=== PATIENT | female | born 1955 | race Two or more races ===

== ENCOUNTER 2024-09-29 07:46 | Inpatient (IN) | payer MEDICARE, OTHER ==
[~2024-09-29] VITALS: Ht 152.4 cm; Wt 80.0 kg
[2024-09-29 07:50] VITALS: PULSE 80; RESP 20; O2SAT 96
--- NOTE | 2024-09-29 08:46 | ED.PDOC ---
GI ASSESSMENT HPI Comments 69 y/o F, with PMHx of thyroid disease and rheumatoid arthritis presents to the ED for CC of abdominal pain. Patient states, she has been experiencing epigastric abdominal pain that radiates to her mid-upper back x1week. Patient reports, additional symptoms of hair loss and brittle nails [id number]; endorses being unable to see PCP for symptoms. Patient denies nausea, vomiting, or diarrhea. No other associated symptoms, modifiers, recent injuries or sick contacts present at this time. Chief Complaint: Abdominal Pain Time Seen by MD: 08:40 Primary Care Provider: RACHEL Reviewed Notes: Nurses Notes, Medications, Allergies Allergies: Coded Allergies: Iodine (Verified Allergy, Unknown, 09/29/24) Home Meds Reported Medications Levothyroxine Sodium (Synthroid) 75 Mcg Tab, 1 TAB PO QAM 09/29/24 Information Source: Patient Mode of Arrival: Ambulatory Timing: Days Duration: Since onset Prehospital treatment: None Quality: None Vomitus: None Stool: Normal Severity: Moderate Recent: None Recent Hx of: None Pain Location: Epigastric Modifying Factors: Nothing Associated sign and symptoms: Abdominal Pain Past Medical History PAST MEDICAL HISTORY: Arthritis, Thyroid Surgical History: Denies all surgeries BUSINESS TRANSFORMATION MANAGER History: Denies all BUSINESS TRANSFORMATION MANAGER Hx Family History Family History: Unknown Social History Smoker: Non-Smoker Alcohol: Denies ETOH Use Drugs: Denies Drug Use Lives In: Home Constitutional: denies: chills, diaphoresis, fatigue, fever, malaise, sweats, w eakness, others EENTM: denies: blurred vision, double vision, ear bleeding, ear discharge, ear drainage, ear pain, ear ringing, eye pain, eye redness, hearing loss, mouth pain, mouth swelling, nasal discharge, nose bleeding, nose congestion, nose pain, photophobia, tearing, throat pain, throat swelling, voice changes, others Respiratory: denies: cough, hemoptysis, orthopnea, SOB at rest, shortness of breath, SOB with excertion, stridor, wheezing, others Cardiovascular: denies: chest pain, dizzy spells, diaphoresis, Dyspnea on exertion, edema, irregular heart beat, left arm pain, lightheadedness, palpitations, PND, syncope, others Gastrointestinal: reports: abdominal pain; denies: abdomen distended, blood streaked bowels, constipated, diarrhea, dysphagia, difficulty swallowing, hematemesis, melena, nausea, poor appetite, poor fluid intake, rectal bleeding, rectal pain, vomiting, others Genitourinary: denies: abnormal vagina bleeding, burning, dyspareunia, dysuria, flank pain, frequency, hematuria, incontinence, pain, , vagina discharge, urgency, others Neurological: denies: dizziness, fainting, headache, left sided numbness, left sided weakness, numbness, paresthesia, pre-existing deficit, right sided numbness, right sided weakness, seizure, speech problems, tingling, tremors, weakness, others Musculoskeletal: reports: back pain; denies: gout, joint pain, joint swelling, muscle pain, muscle stiffness, neck pain, others Integumetry: denies: bruises, change in color, change in hair/nails, dryness, laceration, lesions, lumps, rash, wounds, others Allergic/Immunocompromised: denies: Difficulty Healing, Frequent Infections, Hives, Itching, others Hematologic/Lymphatic: denies: anemia, blood clots, easy bleeding, easy bruising, swollen glands, others Endocrine: denies: excessive hunger, excessive sweating, excessive thirst, excessive urination, flushing, intolerance to cold, intolerance to heat, unexplained weight gain, unexplained weight loss, others Psychiatric: denies: anxiety, bipolar disorder, depression, hopeless, panic disorder, schizophrenia, sleepless, suicidal, others All Other Systems: Reviewed and Negative Physical Exam General Appearance: No Apparent Distress, Obese HEENT: Normal ENT Inspection, Pharynx Normal Neck: Full Range of Motion, Non-Tender, Normal, Normal Inspection Respiratory: Chest Non-Tender, Lungs Clear, No Accessory Muscle Use, No Respiratory Distress, Normal Breath Sounds Cardiovascular: No Edema, No Murmur, No Gallop, Normal Peripheral Pulses, Regular Rate/Rhythm Breast Exam: Deferred Gastrointestinal: Diffuse, No Organomegaly, No Pulsatile Mass, Normal Bowel Sounds, Tenderness Genitalia: Deferred Pelvic: Deferred Rectal: Deferred Extremities: No calf tenderness, Normal capillary refill, Normal inspection, Normal range of motion, Non-tender, No pedal edema Musculoskeletal : Apperance: Normal Neurologic: Alert, music specialist II-XII nml as Tested, No Motor Deficits, Normal Affect, Normal Mood, No Sensory Deficits Cerebellar Function: Normal Reflexes: Normal Skin: Dry, Normal Color, Warm Lymphatic: No Adenopathy Was a procedure done? Was a procedure done?: No GI differential Dx Differential Diagnosis: Cholangitis, Cholecystitis, Diverticular disease, Pancreatitis, Urolithiasis X-Ray, Labs, Meds, VS Vital Signs Date Time Temp Pulse Resp B/P (MAP) Pulse Ox O2 Delivery O2 Flow Rate FiO2 09/29/24 13:46 68 18 169/82 (111) 96 09/29/24 11:46 70 18 184/79 (114) 96 09/29/24 07:50 98.7 80 20 165/77 (106) 96 98.7 09/29/24 07:50 98.7 80 20 165/77 (106) 96 98.7 09/29/24 07:50 80 20 96 Room Air* 0 21 Lab Test 09/29/24 12:00 09/29/24 10:24 09/29/24 08:44 09/29/24 08:36 Range/Units Troponin I High Sensitivity 16 16 16 </=34 ng/L White Blood Count 2.8 L 4.4-10.8 10^3/uL Red Blood Count 4.25 4.0-5.20 10^6/uL Hemoglobin 15.3 12.2-16.2 g/dL Hematocrit 43.8 36.0-46.0 % Mean Corpuscular Volume 103.1 H 80.0-100.0 fL Mean Corpuscular Hemoglobin 36.1 H 28.0-32.0 pg Mean Corpuscular Hemoglobin Concent 35.0 32.0-36.0 g/dL Red Cell Distribution Width 16.4 H 11.8-14.3 % Platelet Count 112 L 140-450 10^3/uL Mean Platelet Volume 10.0 6.9-10.8 fL Neutrophils (%) (Auto) 42.8 37.0-80.0 % Lymphocytes (%) (Auto) 41.0 10.0-50.0 % Monocytes (%) (Auto) 12.4 H 0.0-12.0 % Eosinophils (%) (Auto) 2.6 0.0-7.0 % Basophils (%) (Auto) 1.2 0.0-2.0 % Neutrophils # (Auto) 1.2 L 1.6-8.6 10 ^3/uL Lymphocytes # (Auto) 1.2 0.4-5.4 10 ^3/uL Monocytes # (Auto) 0.4 0-1.3 10 ^3/uL Eosinophils # (Auto) 0.1 0-0.8 10 ^3/uL Basophils # (Auto) 0 0-0.2 10 ^3/uL Nucleated Red Blood Cells 0.2 % Sodium Level 144 136-145 mmol/L Potassium Level 4.0 3.5-5.1 mmol/L Chloride Level 110 H 98-107 mmol/L Carbon Dioxide Level 25 20-31 mmol/L Anion Gap 9 5-15 Blood Urea Nitrogen 12 9-23 mg/dL Creatinine 0.58 0.550-1.02 mg/dL Glomerular Filtration Rate Calc 99 >90 mL/min BUN/Creatinine Ratio 20.7 H 10.0-20.0 Serum Glucose 93 74-106 mg/dL Calcium Level 9.1 8.7-10.4 mg/dL Urine Color Yellow Yellow Urine Clarity Turbid H Clear Urine pH 5.5 5.0-9.0 Urine Specific [place] 1.019 1.001-1.035 Urine Protein Negative Negative Urine Ketones Negative Negative Urine Blood Trace H Negative /uL Urine Nitrite Negative Negative Urine Bilirubin Negative Negative Urine Urobilinogen 3 H Negative mg/dL Urine Leukocyte Esterase 2+ Negative /uL Urine RBC 3 0 - 4 /hpf Urine Microscopic WBC 5 0-5 /HPF Urine Squamous Epithelial Cells Few <5 /hpf Urine Bacteria None seen None Seen /hpf Urine Mucus Few None Seen Urine Glucose Normal Normal mg/dL [place] [address] Ph: [phone] DIAGNOSTIC IMAGING Diagnostic Imaging Report : [id number] Signed PATIENT: SUZANNE MADDEN ACCT: [id number] UNIT: [id number] : 1955 LOC: ER ROOM / BED: / AGE / SEX: 69 / F ADM STATUS: REG ER SERVICE [id number] ORDERING PHYSICIAN: EMA ALMAZAN MD PROCEDURE(s): CXRP - CHEST PORTABLE REASON: right chest wall pain ORDER NUMBER(s): [id number], ACCESSION NUMBER(s): [id number] CHEST RADIOGRAPH Indication: right chest wall pain Technique: Single frontal view of the chest was obtained COMPARISON: None FINDINGS: Lines and Tubes: None Lungs: Clear Pleura: No effusion. No pneumothorax. Cardiomediastinal contours: Unremarkable Bones: Unremarkable IMPRESSION: No acute disease. ATED BY: STANISLAV TOLENTINO MD DICTATED DATE/TIME: 09/29/24858 SIGNED BY: STANISLAV TOLENTINO MD SIGNED DATE/TIME: 09/29/24858 CC: Time of 1ST Reevaluation: 09:10 Reevaluation 1ST: Unchanged Patient Education/Counseling: Diagnosis, Treatment Family Education/Counseling: No Family Present SEPSIS Sepsis Screen Date sepsis recognized/suspect: Sep 29, 2024 Time Sepsis recognized/suspect: 749 Recent Procedure: No On Antibiotic Therapy: No Respiratory Rate >20: No Heart Rate >90: No Temp<36 C (96.8 F) or >38.3 C: No SBP <90 or MAP <65 mmHG: No New Acute Mental Status Change: No Is the patient on CPAP, BIPAP,: No Physician Orders Chest Portable (09/29/24 08:36) Ct Ab Pel Wo Con-No Oral Or Iv (09/29/24 11:09) Vital Signs Date Time Temp Pulse Resp B/P (MAP) Pulse Ox O2 Delivery O2 Flow Rate FiO2 09/29/24 13:46 68 18 169/82 (111) 96 09/29/24 11:46 70 18 184/79 (114) 96 09/29/24 07:50 98.7 80 20 165/77 (106) 96 98.7 09/29/24 07:50 98.7 80 20 165/77 (106) 96 98.7 09/29/24 07:50 80 20 96 Room Air* 0 21 Laboratory Tests Test 09/29/24 08:44 White Blood Count 2.8 10^3/uL (4.4-10.8) L Departure 1 Departure Time of Disposition: 18:32 (Patient presented with abdominal pain that was concerning for possible appendicits, gastritis, cholecystitis, colitis, gastroenteritis, sbo, or orther possible surgical emergency. Data: 1. I ordered and reviewed the result of at least 3 labs including a CBC, BMP, and Urinalysis. 2. I independently interpreted the following tests: CT Abdoment and Pelvis is concerning for acute diverticulitis .Risk:This patient has a high risk of morbidity due to further diagnostic testing or treatment and may suffer from an acute abdominal process disorder. Workup reveals diverticulitis and patient should be admitted for further workup. and possible expert consultation. ) Impression: Primary Impression: Diverticulitis of intestine Qualified Codes: K57.32 - Diverticulitis of large intestine without perforation or abscess without bleeding Additional Impression: Intractable abdominal pain Disposition: ADMITTED INPATIENT Admit to: Med Surg Condition: Serious Critical Care Note Critical Care Time?: Yes Critical care comment: Acute diverticulitis Authorized and Performed by: Ema Almazan MD Total critical care time: Approximately 38 minutes Due to a high probability of clinically significant, life threatening deterioration, the patient required my highest level of preparedness to intervene emergently and I personally spent this critical care time directly and personally managing the patient. This critical care time included obtaining a history; examining the patient; pulse oximetry; ordering and review of studies; arranging urgent treatment with development of a management plan; evaluation of patient's response to treatment; frequent reassessment; and, discussions with other providers. This critical care time was performed to assess and manage the high probability of imminent, life-threatening deterioration that could result in multi-organ failure. It was exclusive of separately billable procedures and treating other patients and teaching time. Please see my other sections and the rest of the note for further information on patient assessment and treatment. Stability Stability form required: No Heart Score Heart Score: Heart Score Response (Comments) Value History N/A 0 EKG N/A 0 Age N/A 0 Risk Factors N/A 0 Troponin N/A 0 Total 0 I personally scribed for EMA ALMAZAN MD ([email or web address]) on 09/29/24 at 08:46. Electronically submitted by Lizzette Erickson ([place]). I personally scribed for EMA ALMAZAN MD ([email or web address]) on 09/29/24 at 08:48. Electronically submitted by Lizzette Erickson ([place]). I personally scribed for EMA ALMAZAN MD ([email or web address]) on 09/29/24 at 08:50. Electronically submitted by Lizzette Erickson ([place]). I personally scribed for EMA ALMAZAN MD ([email or web address]) on 09/29/24 at 09:04. Electronically submitted by Lizzette Erickson ([email or web address]). EMA ALMAZAN MD Sep 29, 2024 08:46
[2024-09-29 08:59] LABS: Urine Protein, UAD Negative (Negative)
--- NOTE | 2024-09-29 09:01 | DVH ---
CHEST RADIOGRAPH Indication: right chest wall pain Technique: Single frontal view of the chest was obtained COMPARISON: None FINDINGS: Lines and Tubes: None Lungs: Clear Pleura: No effusion. No pneumothorax. Cardiomediastinal contours: Unremarkable Bones: Unremarkable IMPRESSION: No acute disease.
[2024-09-29 09:33] LABS: Hematocrit 43.8 % (36.0-46.0); Hemoglobin 15.3 g/dL (12.2-16.2); Mean Corpuscular Hemoglobin 36.1 pg (28.0-32.0); Mean Corpuscular Volume 103.1 fL (80.0-100.0); Nucleated Red Blood Cells % 0.2 %
[2024-09-29 09:44] LABS: Potassium 4.0 mmol/L (3.5-5.1); Sodium 144 mmol/L (136-145)
[2024-09-29 09:45] LABS: Anion Gap 9 (5-15); Calcium 9.1 mg/dL (8.7-10.4); Carbon Dioxide 25 mmol/L (20-31)
[2024-09-29 09:50] LABS: BUN/Creatinine Ratio 20.7 (10.0-20.0); Blood Urea Nitrogen 12 mg/dL (9-23); Glucose 93 mg/dL (74-106)
[2024-09-29 09:53] LABS: Chloride 110 mmol/L (98-107)
[2024-09-29] MEDS ORDERED: cefTRIAXone SOD 1,000 MG VL IM ONE (11:15)
--- NOTE | 2024-09-29 12:11 | DVH ---
Exam: CT CT AB PEL WO CON-NO ORAL OR IV History: abdominal pain Comparison Study: None TECHNIQUE: Multidetector CT of the abdomen was performed from lung bases to pubic symphysis. Imaging was performed without IV contrast. Axial, coronal and sagittal multiplanar reformats were obtained fr om the axial data set by the technologist. Radiation Dose Information: CT Dose: CTDI volume is 22.0 mGy. Dose-length product is mGy*cm FINDINGS: Evaluation of solid organs is limited due to lack of intravenous contrast use. Findings: Imaged lower lungs are unremarkable. Status post cholecystectomy. The liver, spleen, pancreas, adrenal glands, kidneys, and urinary bladde r within normal limits. Status post hysterectomy. There is extensive sigmoid and descending colonic diverticulosis. There is minimal inflammatory nicolas e surrounding a sigmoid diverticulum. No free air or abscess. The appendix is not visualized. Minimal atherosclerotic calcification of the abdominal aorta. No enlarged intra-abdominal lymph nodes . The abdominal wall and soft tissues are unremarkable. Moderate degenerative changes within the lumbar spine with L4 schmorls node. IMPRESSION: 1. Mild acute sigmoid diverticulitis. 2. Status post cholecystectomy and hysterectomy Radiation optimization: All CT scans at this facility use at least one of these dose optimization partha hniques: automated exposure control mA and/or kV adjustment per patient size (includes targeted exam s where dose is matched to clinical indication) or iterative reconstruction.
[2024-09-29] MEDS ORDERED: ACETAMINOPHEN 325 MG TAB PO PRN (14:15)
[2024-09-29] MEDS ORDERED: DOCUSATE SOD 100 MG CAP PO PRN (14:15)
[2024-09-29] MEDS ORDERED: ONDANSETRON HCL 4 MG/2 ML VIAL IV PRN (14:15)
[2024-09-29] MEDS ORDERED: LEV75T PO (14:20)
--- NOTE | 2024-09-29 14:27 | DVHHP2 ---
History of Present Illness Reason for Visit: Abdominal pain History of Present Illness Noelle Sifuentes is a 69-year-old female with past medical history of hypothyroidism, sleep apnea, rheumatoid arthritis, and fibromyalgia, who came to the hospital for abdominal pain. Patient states she has been experiencing intermittent abdominal pain that radiates around to her back for about 1 week. Patient also states that for the last few months she has been losing her hair, and her nails have been brittle and braking. Patient also have bilateral pitting edema to the lower extremities. Pulmonary: Other (Sleep apnea, uses CPAP) Rheumatologic: Fibromyalgia, Rheumatoid arthritis Endocrine: Hypothyroidism Past Surgical History: Appendectomy, Cholecystectomy, Hysterectomy, Other (Bilateral shouders) Smoke: No ALCOHOL: none Drugs: None Lives: with Family Domestic Violence: Neg Review of Systems Constitutional: No: Fever, Chills, Sweats, Weakness, Malaise, Other Eyes: No: Pain, Vision change, Conjunctivae inflammation, Eyelid inflammation, Other, Redness ENT: No: Ear pain, Ear discharge, Nose pain, Nose discharge, Nose congestion, Mouth pain, Mouth swelling, Throat pain, Throat swelling, Other Respiratory: No: Cough, Dry, Shortness of breath, SOB with excertion, Wheezing, Hemoptysis, Pleuritic Pain, Sputum, Wheezing, Other Cardiovascular: Edema (bilateral lower extremities edema); No: Chest Pain, Palpitations, Orthopnea, Paroxysmal Noc. Dyspnea, Lt Headedness, Other Gastrointestinal: Nausea, Abdominal Pain; No: Vomiting, Diarrhea, Constipation, Melena, Hematochezia, Other Genitourinary: No Dysuria, No Frequency, No Incontinence, No Hematuria, No Retention, No Other Musculoskeletal: No: other, neck pain, shoulder pain, arm pain, back pain, hand pain, leg pain, foot pain Skin: No: Rash, Lesions, Jaundice, Bruising, Other Neurological: No: Weakness, Numbness, Incoordination, Change in speech, Confusion, Seizures, Other Allergies: Coded Allergies: Iodine (Verified Allergy, Unknown, 09/29/24) Medications Current Medications Medications Dose Ordered Sig/Dylan Route Start Time Stop Time Status Last Admin Dose Admin Acetaminophen/ Hydrocodone Bitart 1 tab Q4HP PRN PO 09/29/24 14:15 UNV Ondansetron HCl 4 mg Q4HP PRN IV 09/29/24 14:15 UNV Docusate Sodium 100 mg BIDPRN PRN PO 09/29/24 14:15 UNV Acetaminophen 650 mg Q6HP PRN PO 09/29/24 14:15 UNV Morphine Sulfate 2 mg Q4HPRN PRN IV 09/29/24 14:15 UNV Exam Vital Signs Vital Signs Date Time Temp Pulse Resp B/P (MAP) Pulse Ox O2 Delivery O2 Flow Rate FiO2 09/29/24 13:46 68 18 169/82 (111) 96 09/29/24 07:50 98.7 98.7 09/29/24 07:50 Room Air* 0 21 General Appearance: Alert, Oriented X3, Cooperative HEENT: Atraumatic, PERRLA Respiratory: Clear to auscultation, Normal air movement Cardiovascular: Regular rate, Normal S1, Normal S2 Abdominal: Normal bowel sounds Extremities: No clubbing, No cyanosis, Normal pulses, No tenderness/swelling, Other (bilateral lower extremity edema. ) Skin: No rashes, No breakdown, No significant lesion Neuro: Normal gait, Normal speech, Strength at 5/5 X4 ext Psych/Mental Status: Mental status NL, Mood NL Labs/Xrays Labs Test 09/29/24 12:00 09/29/24 08:44 09/29/24 08:36 Range/Units Troponin I High Sensitivity 16 </=34 ng/L White Blood Count 2.8 L 4.4-10.8 10^3/uL Red Blood Count 4.25 4.0-5.20 10^6/uL Hemoglobin 15.3 12.2-16.2 g/dL Hematocrit 43.8 36.0-46.0 % Mean Corpuscular Volume 103.1 H 80.0-100.0 fL Mean Corpuscular Hemoglobin 36.1 H 28.0-32.0 pg Mean Corpuscular Hemoglobin Concent 35.0 32.0-36.0 g/dL Red Cell Distribution Width 16.4 H 11.8-14.3 % Platelet Count 112 L 140-450 10^3/uL Mean Platelet Volume 10.0 6.9-10.8 fL Neutrophils (%) (Auto) 42.8 37.0-80.0 % Lymphocytes (%) (Auto) 41.0 10.0-50.0 % Monocytes (%) (Auto) 12.4 H 0.0-12.0 % Eosinophils (%) (Auto) 2.6 0.0-7.0 % Basophils (%) (Auto) 1.2 0.0-2.0 % Neutrophils # (Auto) 1.2 L 1.6-8.6 10 ^3/uL Lymphocytes # (Auto) 1.2 0.4-5.4 10 ^3/uL Monocytes # (Auto) 0.4 0-1.3 10 ^3/uL Eosinophils # (Auto) 0.1 0-0.8 10 ^3/uL Basophils # (Auto) 0 0-0.2 10 ^3/uL Nucleated Red Blood Cells 0.2 % Sodium Level 144 136-145 mmol/L Potassium Level 4.0 3.5-5.1 mmol/L Chloride Level 110 H 98-107 mmol/L Carbon Dioxide Level 25 20-31 mmol/L Anion Gap 9 5-15 Blood Urea Nitrogen 12 9-23 mg/dL Creatinine 0.58 0.550-1.02 mg/dL Glomerular Filtration Rate Calc 99 >90 mL/min BUN/Creatinine Ratio 20.7 H 10.0-20.0 Serum Glucose 93 74-106 mg/dL Calcium Level 9.1 8.7-10.4 mg/dL Urine Color Yellow Yellow Urine Clarity Turbid H Clear Urine pH 5.5 5.0-9.0 Urine Specific [place] 1.019 1.001-1.035 Urine Protein Negative Negative Urine Ketones Negative Negative Urine Blood Trace H Negative /uL Urine Nitrite Negative Negative Urine Bilirubin Negative Negative Urine Urobilinogen 3 H Negative mg/dL Urine Leukocyte Esterase 2+ Negative /uL Urine RBC 3 0 - 4 /hpf Urine Microscopic WBC 5 0-5 /HPF Urine Squamous Epithelial Cells Few <5 /hpf Urine Bacteria None seen None Seen /hpf Urine Mucus Few None Seen Urine Glucose Normal Normal mg/dL CHEST RADIOGRAPH FINDINGS: Lines and Tubes: None Lungs: Clear Pleura: No effusion. No pneumothorax. Cardiomediastinal contours: Unremarkable Bones: Unremarkable IMPRESSION: No acute disease. Exam: CT CT AB PEL WO CON-NO ORAL OR IV FINDINGS: Evaluation of solid organs is limited due to lack of intravenous contrast use. Findings: Imaged lower lungs are unremarkable. Status post cholecystectomy. The liver, spleen, pancreas, adrenal glands, kidneys, and urinary bladder within normal limits. Status post hysterectomy. There is extensive sigmoid and descending colonic diverticulosis. There is minimal inflammatory change surrounding a sigmoid diverticulum. No free air or abscess. The appendix is not visualized. Minimal atherosclerotic calcification of the abdominal aorta. No enlarged intra- abdominal lymph nodes. The abdominal wall and soft tissues are unremarkable. Moderate degenerative changes within the lumbar spine with L4 schmorls node. IMPRESSION: 1. Mild acute sigmoid diverticulitis. 2. Status post cholecystectomy and hysterectomy SEPSIS Sepsis Screen Date sepsis recognized/suspect: Sep 29, 2024 Time Sepsis recognized/suspect: 749 Recent Procedure: No On Antibiotic Therapy: No Respiratory Rate >20: No Heart Rate >90: No Temp<36 C (96.8 F) or >38.3 C: No SBP <90 or MAP <65 mmHG: No New Acute Mental Status Change: No Is the patient on CPAP, BIPAP,: No Physician Orders Chest Portable (09/29/24 08:36) Ct Ab Pel Wo Con-No Oral Or Iv (09/29/24 11:09) Admit (09/29/24 14:13) Code Status (09/29/24 14:13) Hydrocodone-Acet 5/325mg Tab (Boissevain 5/32 (09/29/24 14:15) Ondansetron Hcl (Zofran) (09/29/24 14:15) Docusate Sodium Capsule (Colace Capsule) (09/29/24 14:15) Complete Blood Count (09/30/24 04:00) Comprehensive Metabolic Panel (09/30/24 04:00) Condition: Serious (09/29/24 14:13) Acetaminophen Tablet (Tylenol Tablet) (09/29/24 14:15) Morphine Sulfate Injection (09/29/24 14:15) Metronidazole Ivpb Flagyl (09/29/24 22:00) Ceftriaxone Ivpb Rocephin (09/30/24 09:00) NS (09/29/24 14:30) (Nf) Levothyroxine Sodium (Synthroid) (09/30/24 07:00) Vital Signs Date Time Temp Pulse Resp B/P (MAP) Pulse Ox O2 Delivery O2 Flow Rate FiO2 09/29/24 13:46 68 18 169/82 (111) 96 09/29/24 11:46 70 18 184/79 (114) 96 09/29/24 07:50 98.7 80 20 165/77 (106) 96 98.7 09/29/24 07:50 98.7 80 20 165/77 (106) 96 98.7 09/29/24 07:50 80 20 96 Room Air* 0 21 Laboratory Tests Test 09/29/24 08:44 White Blood Count 2.8 10^3/uL (4.4-10.8) L Assessment/Plan Assessment/Plan Assessment: Diverticulitis, Hypothyroidism, Sleep apnea, Plan: Admit to Med-Surg, GI consult, IV antibiotics, IV hydration, Clear liquid diet, TSH, T3, T4, Home medications reconciled, Plan discussed with: Patient My Orders Orders - ALEX PINON Procedure Category Date Status Time Admit ADMIT 09/29/24 Transmitted 14:13 Code Status CODE 09/29/24 Transmitted 14:13 Hydrocodone-Acet PHA 09/29/24 Logged 5/325mg Tab (Boissevain 14:15 Ondansetron Hcl PHA 09/29/24 Logged (Zofran) 14:15 Docusate Sodium PHA 09/29/24 Logged Capsule (Colace 14:15 Complete Blood Count LAB 09/30/24 Verified 04:00 Comprehensive LAB 09/30/24 Verified Metabolic Panel 04:00 Condition: Serious LUZ 09/29/24 In Process 14:13 Acetaminophen Tablet PHA 09/29/24 Logged (Tylenol Tablet) 14:15 Morphine Sulfate PHA 09/29/24 Logged Injection 14:15 Metronidazole Ivpb PHA 09/29/24 Transmitted Flagyl 22:00 Ceftriaxone Ivpb PHA 09/30/24 Transmitted Rocephin 09:00 NS PHA 09/29/24 Transmitted 14:30 (Nf) Levothyroxine PHA 09/30/24 Transmitted Sodium (Synthroid) 07:00 Date of Service: Sep 29, 2024 Billing Provider: ALEX PINON Common Visit Codes: [id number] INP/OBS CARE (MOD) ALEX PINON Sep 29, 2024 14:27
[2024-09-29] MEDS: SODIUM CHLORIDE 0.9% 1,000 ML IV ONE (14:29)
[2024-09-29 16:28] VITALS: BP 165/77; PULSE 80; RESP 20; TEMP 98.7; O2SAT 96
[2024-09-29 19:00] VITALS: O2SAT 96
[2024-09-29] MEDS: MORPHINE SULFATE INJ 2 MG/ml SYRG IV PRN (20:56)
[2024-09-29 21:00] VITALS: BP 143/55; PULSE 68; RESP 18; TEMP 98.1; O2SAT 97
[2024-09-29] MEDS: HYDROcodone-ACET 5/325MG TAB PO PRN (22:26)
[2024-09-29 22:29] VITALS: BP 142/55; PULSE 68; RESP 16; TEMP 97.9; O2SAT 98
[2024-09-29 23:00] VITALS: PULSE 61; O2SAT 97
[2024-09-30] VITALS (9 sets, daily range): BP systolic 110–145; BP diastolic 56–76; PULSE 58–82; RESP 16–22; TEMP 97.5–98; O2SAT 92–100
[2024-09-30 06:09] LABS: Hematocrit 38.4 % (36.0-46.0); Hemoglobin 13.5 g/dL (12.2-16.2); Mean Corpuscular Hemoglobin 36.2 pg (28.0-32.0); Mean Corpuscular Volume 103.1 fL (80.0-100.0); Nucleated Red Blood Cells % 0.2 %
[2024-09-30 06:15] LABS: Alanine Aminotransferase 36 U/L (7-40); Anion Gap 6 (5-15); BUN/Creatinine Ratio 21.7 (10.0-20.0); Blood Urea Nitrogen 10 mg/dL (9-23); Carbon Dioxide 26 mmol/L (20-31); Glucose 78 mg/dL (74-106); Potassium 3.8 mmol/L (3.5-5.1); Sodium 142 mmol/L (136-145)
[2024-09-30 06:19] LABS: Albumin 2.8 g/dL (3.2-4.8); Alkaline Phosphatase 148 U/L (46-116); Bilirubin, Total 5.1 mg/dL (0.2-1.0); Calcium 8.2 mg/dL (8.7-10.4); Chloride 110 mmol/L (98-107); Total Protein 4.8 g/dL (5.7-8.2)
[2024-09-30] MEDS: LEVOTHYROXINE SODIUM 25 MCG TAB PO SCH (06:23)
[2024-09-30] MEDS ORDERED: PATIENTS OWN MEDICATION (Levothyroxine Sodium (Synthroid) 1 TAB) PO SCH (07:00)
[2024-09-30] MEDS: cefTRIAXone 1GM/50ML D5W 50 ML IV SCH (10:10)
--- NOTE | 2024-09-30 13:42 | DVHPN2 ---
Subjective 69-year-old female with a history of rheumatoid arthritis, fibromyalgia, hypothyroidism, prior cholecystectomy came with a chief complaint of right upper quadrant abdominal pain and right lower chest pain for about 1 week, the pain is associated with radiation to the back, cough makes it worse No nausea or vomiting or diarrhea She also complains of some mild pain in the left lower quadrant On evaluation here it was found that her bilirubin is 5.1 and alkaline phosphatase was 148 The patient had cholecystectomy many years ago She also has a history of fatty liver and she sees Dr. Barbie Herrera for it as an outpatient Changes from previous H/P or p: Changes Eyes: No Pain, No Vision change, No Conjunctivae inflammation, No Eyelid inflammation, No Other, No Redness ENT: No Ear pain, No Ear discharge, No Nose pain, No Nose discharge, No Nose congestion, No Mouth pain, No Mouth swelling, No Throat pain, No Throat swelling, No Other Cardiovascular: No Chest Pain, No Palpitations, No Orthopnea, No Paroxysmal Noc. Dyspnea; Edema (bilateral lower extremities edema); No Lt Headedness, No Other Respiratory: No Cough, No Dry, No Shortness of breath, No SOB with excertion, No Wheezing, No Hemoptysis, No Pleuritic Pain, No Sputum, No Other Gastrointestinal: Nausea; No Vomiting; Abdominal Pain; No Diarrhea, No Constipation, No Melena, No Hematochezia, No Other Genitourinary: No Dysuria, No Frequency, No Incontinence, No Hematuria, No Retention, No Other Musculoskeletal: No other, No neck pain, No shoulder pain, No arm pain, No back pain, No hand pain, No leg pain, No foot pain Skin: No Rash, No Lesions, No Jaundice, No Bruising, No Other Objective Vitals Vital Signs Date Time Temp Pulse Resp B/P (MAP) Pulse Ox O2 Delivery O2 Flow Rate FiO2 09/30/24 09:00 97.6 64 16 112/56 (74 92 97.6 09/30/24 08:00 Room Air* 0 21 Intake/Output Intake and Output 09/30/24 07:00 Intake Total 1600 ml Balance 1600 ml Intake Oral 300 ml IV Total 1300 ml # Voids 6 General Appearance: Alert, Oriented X3, Cooperative, No acute distress Cardiovascular: Regular rate, Normal S1, Normal S2 Abdomen: Normal bowel sounds, Soft, No tenderness Extremities: No edema Medications Current Medications Medications Dose Ordered Sig/Dylan Route Start Time Stop Time Status Last Admin Dose Admin Acetaminophen/ Hydrocodone Bitart 1 tab Q4HP PRN PO 09/29/24 14:15 09/29/24 22:26 1 TAB Ondansetron HCl 4 mg Q4HP PRN IV 09/29/24 14:15 Docusate Sodium 100 mg BIDPRN PRN PO 09/29/24 14:15 Acetaminophen 650 mg Q6HP PRN PO 09/29/24 14:15 Morphine Sulfate 2 mg Q4HPRN PRN IV 09/29/24 14:15 09/29/24 20:56 2 MG Metronidazole 100 ml @ 100 mls/hr Q8HR IV 09/29/24 22:00 09/30/24 05:21 100 MLS/HR Ceftriaxone Sodium 50 ml @ 100 mls/hr DAILY@09 IV 09/30/24 09:00 09/30/24 10:10 100 MLS/HR Patient Own Medication 1 tab QAM PO 09/30/24 07:00 UNV Levothyroxine Sodium 75 mcg QAM PO 09/30/24 07:00 09/30/24 06:23 75 MCG Laboratory Results Laboratory Tests 09/30/24 05:29 Chemistry Test 09/30/24 05:29 Albumin 2.8 g/dL (3.2-4.8) L Calcium Level 8.2 mg/dL (8.7-10.4) L Total Protein 4.8 g/dL (5.7-8.2) L LFT Test 09/30/24 05:29 Alanine Aminotransferase (ALT) 36 U/L (7-40) Alkaline Phosphatase 148 U/L (46-116) H Aspartate Amino Transferase (AST) 51 U/L (13-40) H Total Bilirubin 5.1 mg/dL (0.2-1.0) H Urinalysis Test 09/29/24 08:36 Urine Color Yellow (Yellow) Urine Clarity Turbid (Clear) H Urine pH 5.5 (5.0-9.0) Urine Specific [place] 1.019 (1.001-1.035) Urine Protein Negative (Negative) Urine Ketones Negative (Negative) Urine Blood Trace /uL (Negative) H Urine Nitrite Negative (Negative) Urine Bilirubin Negative (Negative) Urine Urobilinogen 3 mg/dL (Negative) H Urine Leukocyte Esterase 2+ /uL (Negative) Urine RBC 3 /hpf (0 - 4) Urine Microscopic WBC 5 /HPF (0-5) Urine Squamous Epithelial Cells Few /hpf (<5) Urine Bacteria None seen /hpf (None Seen) Urine Mucus Few (None Seen) Urine Glucose Normal mg/dL (Normal) Assessment/Plan Assessment/Plan Abdominal pain Acute diverticulitis Fatty liver Status post cholecystectomy many years ago Obesity Hypothyroidism Fibromyalgia Elevated liver function tests Hyperbilirubinemia Hypoalbuminemia Mild protein malnutrition UTI Obstructive sleep apnea Plan IV Rocephin and Flagyl Clear liquid diet GI consult Monitor the liver function tests Continue the home medication levothyroxine 75 mcg daily Check the TSH Monitor closely Full code Get abdominal ultrasound CPAP for sleep apnea Advance directives discussed for 20 minute Plan discussed with: Patient My Orders Orders - MICHELLE POWELL MD Procedure Category Date Status Time Thyroid Stimulating LAB 10/01/24 Verified Hormone 04:00 Lipid Panel LAB 10/01/24 Verified 04:00 Comprehensive LAB 10/01/24 Verified Metabolic Panel 04:00 Complete Blood Count LAB 10/01/24 Verified 04:00 Magnesium LAB 10/01/24 Verified 04:00 Abdomen Complete US 09/30/24 Taken Sonogram 11:57 Date of Service: Sep 30, 2024 Billing Provider: MICHELLE POWELL MD Common Visit Codes: [id number] INP/OBS CARE(HIGH) Secondary Visit Codes: [id number] CARE PLAN 30 MINUTES MICHELLE POWELL MD Sep 30, 2024 13:42
--- NOTE | 2024-09-30 13:42 | DVH ---
EXAM DESCRIPTION: US ABDOMEN COMPLETE SONOGRAM CLINICAL HISTORY: abd pain COMPARISON: CT CT AB PEL WO CON-NO ORAL OR IV on DOS: 09/29/24 TECHNIQUE: Using real-time ultrasonography multiple images of the abdomen were obtained. FINDINGS: The liver measures 13 cm. No focal liver masses. The liver demonstrates coarse echogenicity. The pancreas is obscured by shadowing bowel gas. Status post cholecystectomy. Common bile duct is not visualized. There is no free intraperitoneal fluid. The right kidney measures 10.7 cm. The left kidney measures 10.8 cm. No hydronephrosis or renal calcu li. The spleen measures 10.7 cm. IMPRESSION: 1. Coarse liver, suspicious for cirrhosis 2. Status post cholycystectomy.
--- NOTE | 2024-09-30 18:11 | DVHCONRES ---
Date Seen: Sep 30, 2024 Resident Creating Document: ROBBI PAINTING RESIDENT Referring Physician ALEX PINON Reason for Consultation DIVERTICULITIS History of Present Illness 69-year-old female with PMH of hypothyroidism, obstructive sleep apnea, rheumatoid arthritis, and fibromyalgia, presented with right upper quadrant abdominal pain radiating to the back for one week, associated with early satiety, dysphagia to rice, and bilateral pedal edema. She denies nausea, vomiting, diarrhea, melena, or hematochezia. She has had hair loss and brittle hair. Reports one bowel movement today and tolerates clear liquids. Brief Gist of Todays Progress * Continues to experience mild abdominal discomfort but is tolerating clear liquid diet. * Receiving IV ceftriaxone and metronidazole for diverticulitis. * Labs reveal hyperbilirubinemia (5.1), elevated AST (51), elevated Alk Phos (148), low albumin (2.8), macrocytosis, pancytopenia (WBC 2.8, platelets 100). * CT: Mild acute sigmoid diverticulitis, no abscess. * US: Coarse liver echotexture suspicious for cirrhosis. * Feeds: Oral intake with clear liquids; IV hydration ongoing. Past Medical History Pulmonary: Other (Sleep apnea, uses CPAP) Rheumatologic: Fibromyalgia, Rheumatoid arthritis Endocrine: Hypothyroidism Past Surgical History Past Surgical History: Appendectomy, Cholecystectomy, Hysterectomy, Other (Bilateral shouders) Smoke: No ALCOHOL: none Drugs: None Lives: with Family Domestic Violence: Neg Family History: FH: liver disease Family History Lives: with Family Domestic Violence: Neg Social History Smoke: No ALCOHOL: none Drugs: None Allergies: Coded Allergies: Iodine (Verified Allergy, Unknown, 09/29/24) Home Meds Reported Medications Levothyroxine Sodium (Synthroid) 75 Mcg Tab, 1 TAB PO QAM 09/29/24 Current Medications Current Medications Medications (Trade) Dose Ordered Sig/Dylan Route PRN Reason Start Time Stop Time Status Last Admin Metronidazole 100 ml @ 100 mls/hr Q8HR IV 09/29/24 22:00 09/30/24 15:03 Ceftriaxone Sodium 50 ml @ 100 mls/hr DAILY@09 IV 09/30/24 09:00 09/30/24 10:10 Patient Own Medication 1 tab QAM PO 09/30/24 07:00 UNV Levothyroxine Sodium (Synthroid Tablet) 75 mcg QAM PO 09/30/24 07:00 09/30/24 06:23 Docusate Sodium (Colace Capsule) 100 mg BID PO 09/30/24 22:00 Review of Systems * GI: Reports abdominal pain (RUQ, LLQ), early satiety, dysphagia to solids, no nausea, vomiting, hematemesis, melena, hematochezia, or constipation. * Other systems: Unremarkable as per previous review. Vital Signs Vital Signs Date Time Temp Pulse Resp B/P (MAP) Pulse Ox O2 Delivery O2 Flow Rate FiO2 09/30/24 16:57 97.9 61 17 145/69 (94) 96 97.9 09/30/24 08:00 Room Air* 0 21 Physical Exam * Abdomen: Soft, mildly tender in RUQ and LLQ, no rebound or guarding. * Liver/Spleen: No palpable hepatosplenomegaly. * Skin: No jaundice currently noted. * Extremities: Bilateral pedal edema present. Labs/Diagnostic Data Labs Test 09/30/24 05:29 09/29/24 12:00 09/29/24 08:36 Range/Units White Blood Count 2.8 L 4.4-10.8 10^3/uL Red Blood Count 3.72 L 4.0-5.20 10^6/uL Hemoglobin 13.5 12.2-16.2 g/dL Hematocrit 38.4 # 36.0-46.0 % Mean Corpuscular Volume 103.1 H 80.0-100.0 fL Mean Corpuscular Hemoglobin 36.2 H 28.0-32.0 pg Mean Corpuscular Hemoglobin Concent 35.1 32.0-36.0 g/dL Red Cell Distribution Width 16.3 H 11.8-14.3 % Platelet Count 100 L 140-450 10^3/uL Mean Platelet Volume 9.4 6.9-10.8 fL Neutrophils (%) (Auto) 48.5 37.0-80.0 % Lymphocytes (%) (Auto) 36.0 10.0-50.0 % Monocytes (%) (Auto) 12.3 H 0.0-12.0 % Eosinophils (%) (Auto) 2.3 0.0-7.0 % Basophils (%) (Auto) 0.9 0.0-2.0 % Neutrophils # (Auto) 1.3 L 1.6-8.6 10 ^3/uL Lymphocytes # (Auto) 1.0 0.4-5.4 10 ^3/uL Monocytes # (Auto) 0.3 0-1.3 10 ^3/uL Eosinophils # (Auto) 0.1 0-0.8 10 ^3/uL Basophils # (Auto) 0 0-0.2 10 ^3/uL Nucleated Red Blood Cells 0.2 % Sodium Level 142 136-145 mmol/L Potassium Level 3.8 3.5-5.1 mmol/L Chloride Level 110 H 98-107 mmol/L Carbon Dioxide Level 26 20-31 mmol/L Anion Gap 6 5-15 Blood Urea Nitrogen 10 9-23 mg/dL Creatinine 0.46 L 0.550-1.02 mg/dL Glomerular Filtration Rate Calc 104 >90 mL/min BUN/Creatinine Ratio 21.7 H 10.0-20.0 Serum Glucose 78 74-106 mg/dL Calcium Level 8.2 L 8.7-10.4 mg/dL Total Bilirubin 5.1 H 0.2-1.0 mg/dL Aspartate Amino Transferase (AST) 51 H 13-40 U/L Alanine Aminotransferase (ALT) 36 7-40 U/L Alkaline Phosphatase 148 H 46-116 U/L Total Protein 4.8 L 5.7-8.2 g/dL Albumin 2.8 L 3.2-4.8 g/dL Troponin I High Sensitivity 16 </=34 ng/L Urine Color Yellow Yellow Urine Clarity Turbid H Clear Urine pH 5.5 5.0-9.0 Urine Specific [place] 1.019 1.001-1.035 Urine Protein Negative Negative Urine Ketones Negative Negative Urine Blood Trace H Negative /uL Urine Nitrite Negative Negative Urine Bilirubin Negative Negative Urine Urobilinogen 3 H Negative mg/dL Urine Leukocyte Esterase 2+ Negative /uL Urine RBC 3 0 - 4 /hpf Urine Microscopic WBC 5 0-5 /HPF Urine Squamous Epithelial Cells Few <5 /hpf Urine Bacteria None seen None Seen /hpf Urine Mucus Few None Seen Urine Glucose Normal Normal mg/dL Assessment 1. Acute sigmoid diverticulitis mild, without perforation or abscess. 2. Cirrhotic liver disease with coarse echotexture on US, abnormal LFTs, and hypoalbuminemia 3. Hyperbilirubinemia secondary to chronic liver disease. 4. Pancytopenia leukopenia, thrombocytopenia, macrocytosis 5. Protein-calorie malnutrition with low albumin. 6. History of cholecystectomy 7. Dysphagia requiring further workup. Plan/Recommendation Treatment Plan Gastrointestinal / Hepatic * Continue IV ceftriaxone + metronidazole for diverticulitis. * Maintain clear liquid diet, advance as tolerated. * Pantoprazole IV daily for GI prophylaxis. * Order LISANDRO, ferritin, hepatic autoimmune panel, lipase (already initiated). * Monitor LFTs, INR, bilirubin daily. * GI consult for evaluation of cirrhosis and dysphagia (consider outpatient EGD). * Consider esophageal workup if dysphagia persists (EGD barium swallow). Hematology * Monitor CBC daily. * Check B12, folate, iron studies to evaluate macrocytosis. Prophylaxis * GI prophylaxis: Pantoprazole IV daily. Plan discussed with: Patient ROBBI PAINTING RESIDENT Sep 30, 2024 18:11
[2024-09-30] MEDS: DOCUSATE SOD 100 MG CAP PO SCH (21:15)
[2024-10-01] VITALS (11 sets, daily range): BP systolic 97–158; BP diastolic 51–76; PULSE 61–107; RESP 15–20; TEMP 97.6–98.8; O2SAT 92–98
[2024-10-01 06:33] LABS: Hematocrit 39.1 % (36.0-46.0); Hemoglobin 13.7 g/dL (12.2-16.2); Mean Corpuscular Hemoglobin 35.9 pg (28.0-32.0); Mean Corpuscular Volume 102.7 fL (80.0-100.0); Nucleated Red Blood Cells % 0.2 %
[2024-10-01 06:37] LABS: INR 1.28 (0.9-1.15); Prothrombin Time 13.2 sec (9.3-11.8)
[2024-10-01 06:52] LABS: Alanine Aminotransferase 36 U/L (7-40); Anion Gap 9 (5-15); BUN/Creatinine Ratio 14.3 (10.0-20.0); Calcium 8.8 mg/dL (8.7-10.4); Carbon Dioxide 25 mmol/L (20-31); Cholesterol 114 mg/dL (< 200); Glucose 86 mg/dL (74-106); Magnesium 2.0 mg/dL (1.6-2.6); Potassium 3.6 mmol/L (3.5-5.1); Sodium 142 mmol/L (136-145); Triglycerides 67 mg/dL (< 150)
[2024-10-01 06:53] LABS: Albumin 2.9 g/dL (3.2-4.8); Alkaline Phosphatase 153 U/L (46-116); Bilirubin, Total 5.6 mg/dL (0.2-1.0); Blood Urea Nitrogen 8 mg/dL (9-23); Chloride 108 mmol/L (98-107); HDL Cholesterol 33 mg/dL (40-59); Total Protein 5.0 g/dL (5.7-8.2)
[2024-10-01 07:12] LABS: Lipase 39 U/L (12-53)
--- NOTE | 2024-10-01 11:53 | DVHPN2 ---
Subjective Reports that feeling better with less pain in the right upper quadrant Less pain in the left lower quadrant She is tolerating soft diet Abdominal ultrasound showed coarse liver suspicious for cirrhosis TSH is high at 6.0 Changes from previous H/P or p: Changes Eyes: No Pain, No Vision change, No Conjunctivae inflammation, No Eyelid inflammation, No Other, No Redness ENT: No Ear pain, No Ear discharge, No Nose pain, No Nose discharge, No Nose congestion, No Mouth pain, No Mouth swelling, No Throat pain, No Throat swelling, No Other Cardiovascular: No Chest Pain, No Palpitations, No Orthopnea, No Paroxysmal Noc. Dyspnea; Edema (bilateral lower extremities edema); No Lt Headedness, No Other Respiratory: No Cough, No Dry, No Shortness of breath, No SOB with excertion, No Wheezing, No Hemoptysis, No Pleuritic Pain, No Sputum, No Other Gastrointestinal: Nausea; No Vomiting; Abdominal Pain; No Diarrhea, No Constipation, No Melena, No Hematochezia, No Other Genitourinary: No Dysuria, No Frequency, No Incontinence, No Hematuria, No Retention, No Other Musculoskeletal: No other, No neck pain, No shoulder pain, No arm pain, No back pain, No hand pain, No leg pain, No foot pain Skin: No Rash, No Lesions, No Jaundice, No Bruising, No Other Objective Vitals Vital Signs Date Time Temp Pulse Resp B/P (MAP) Pulse Ox O2 Delivery O2 Flow Rate FiO2 10/01/24 09:00 97.6 66 16 120/64 (82) 94 97.6 10/01/24 07:30 Room Air* 0 21 Intake/Output Intake and Output 10/01/24 07:00 Intake Total 1825 ml Balance 1825 ml Intake Oral 1575 ml IV Total 250 ml # Voids 9 # Bowel Movements 1 General Appearance: Alert, Oriented X3, Cooperative, No acute distress Cardiovascular: Regular rate, Normal S1, Normal S2 Abdomen: Normal bowel sounds, Soft, No tenderness Extremities: No edema Medications Current Medications Medications Dose Ordered Sig/Dylan Route Start Time Stop Time Status Last Admin Dose Admin Acetaminophen/ Hydrocodone Bitart 1 tab Q4HP PRN PO 09/29/24 14:15 09/30/24 21:15 1 TAB Ondansetron HCl 4 mg Q4HP PRN IV 09/29/24 14:15 Docusate Sodium 100 mg BIDPRN PRN PO 09/29/24 14:15 Acetaminophen 650 mg Q6HP PRN PO 09/29/24 14:15 Morphine Sulfate 2 mg Q4HPRN PRN IV 09/29/24 14:15 09/29/24 20:56 2 MG Metronidazole 100 ml @ 100 mls/hr Q8HR IV 09/29/24 22:00 10/01/24 05:48 100 MLS/HR Ceftriaxone Sodium 50 ml @ 100 mls/hr DAILY@09 IV 09/30/24 09:00 10/01/24 09:20 100 MLS/HR Patient Own Medication 1 tab QAM PO 09/30/24 07:00 UNV Levothyroxine Sodium 75 mcg QAM PO 09/30/24 07:00 10/01/24 06:08 75 MCG Docusate Sodium 100 mg BID PO 09/30/24 22:00 Laboratory Results Laboratory Tests 10/01/24 05:33 Chemistry Test 10/01/24 05:33 Albumin 2.9 g/dL (3.2-4.8) L Calcium Level 8.8 mg/dL (8.7-10.4) Magnesium Level 2.0 mg/dL (1.6-2.6) Total Protein 5.0 g/dL (5.7-8.2) L Coagulation Test 10/01/24 05:33 Prothrombin Time 13.2 sec (9.3-11.8) H Prothrombin Time INR 1.28 (0.9-1.15) H Lipid panel Test 10/01/24 05:33 Cholesterol Level 114 mg/dL (< 200) HDL Cholesterol 33 mg/dL (40-59) L Lipase 39 U/L (12-53) Triglycerides Level 67 mg/dL (< 150) LFT Test 10/01/24 05:33 Alanine Aminotransferase (ALT) 36 U/L (7-40) Alkaline Phosphatase 153 U/L (46-116) H Aspartate Amino Transferase (AST) 60 U/L (13-40) H Total Bilirubin 5.6 mg/dL (0.2-1.0) H HgA1c, TSH Test 10/01/24 05:33 Thyroid Stimulating Hormone (TSH) 6.00 uIU/mL (0.55-4.78) H Urinalysis Test 09/29/24 08:36 Urine Color Yellow (Yellow) Urine Clarity Turbid (Clear) H Urine pH 5.5 (5.0-9.0) Urine Specific [place] 1.019 (1.001-1.035) Urine Protein Negative (Negative) Urine Ketones Negative (Negative) Urine Blood Trace /uL (Negative) H Urine Nitrite Negative (Negative) Urine Bilirubin Negative (Negative) Urine Urobilinogen 3 mg/dL (Negative) H Urine Leukocyte Esterase 2+ /uL (Negative) Urine RBC 3 /hpf (0 - 4) Urine Microscopic WBC 5 /HPF (0-5) Urine Squamous Epithelial Cells Few /hpf (<5) Urine Bacteria None seen /hpf (None Seen) Urine Mucus Few (None Seen) Urine Glucose Normal mg/dL (Normal) Assessment/Plan Assessment/Plan Abdominal pain Acute diverticulitis Fatty liver Status post cholecystectomy many years ago Obesity Hypothyroidism Fibromyalgia Elevated liver function tests Hyperbilirubinemia Hypoalbuminemia Mild protein malnutrition UTI Obstructive sleep apnea Plan IV Rocephin and Flagyl Clear liquid diet GI consult Monitor the liver function tests Continue the home medication levothyroxine 75 mcg daily Check the TSH Monitor closely Full code Get abdominal ultrasound CPAP for sleep apnea Advance directives discussed for 20 minute 10/01/2024: Hypothyroidism: Increase levothyroxine to 100 mics daily Ultrasound of the liver showed possible cirrhosis GI consult is on board Continue soft diet IV antibiotics CPAP at night, may use her own as she Monitor closely Discharge planning for tomorrow Plan discussed with: Patient My Orders Orders - MICHELLE POWELL MD Procedure Category Date Status Time Abdomen Complete US 09/30/24 Resulted Sonogram 11:57 Date of Service: Oct 01, 2024 Billing Provider: MICHELLE POWELL MD Common Visit Codes: [id number] INP/OBS CARE(HIGH) MICHELLE POWELL MD Oct 01, 2024 11:53
--- NOTE | 2024-10-01 12:00 | DVHPN2 ---
Progress Note Date Seen: Oct 01, 2024 Resident Creating Document: ROBBI PAINTING RESIDENT Has the PT tested + for MRSA If YES, has PT been informed?: No Medical Necessity Reason Pt with a Central, PICC or Fol: No Subjective Review of Systems 69-year-old female with PMH of hypothyroidism, KARUNA, rheumatoid arthritis, fibromyalgia, and history of severe alcohol abuse (abstinent for 1 year) presents with abdominal pain radiating to the back, intermittent, and worsened with cough. She reports early satiety, dysphagia to solids (particularly rice), and a history of fatty liver with known cirrhosis. Denies nausea, vomiting, hematemesis, or melena. She had one bowel movement yesterday. Currently tolerating soft diet. No new GI bleeding symptoms. Brief Gist of Todays Progress * Abdominal pain persists but is improving. * Advanced from clear liquids to soft diet, tolerating feeds. * On IV ceftriaxone 50 mg daily and IV metronidazole q8h for acute diverticulitis. * LFTs show worsening hyperbilirubinemia (5.6), AST 60, ALT 36, ALP 153, albumin 2.9. * Pancytopenia persists with macrocytosis. * Ferritin mildly elevated (305.8). * LISANDRO, hepatitis panel pending. Coagulation profile slightly elevated (PT 13.2, INR 1.28). * Abdominal imaging: CT showed mild sigmoid diverticulitis without abscess; US showed coarse liver echotexture suspicious for cirrhosis. * GI workup to include outpatient colonoscopy when stable. * Vitamin B12 ordered ROS * GI: Abdominal pain (RUQ, LLQ), early satiety, dysphagia to solids, no vomiting, no hematemesis, no melena. * Skin: No rash, no new jaundice. * Other systems: No new findings compared to previous documentation. Objective vital signs Vital Sign Date Time Temp Pulse Resp B/P (MAP) Pulse Ox O2 Delivery O2 Flow Rate FiO2 10/01/24 09:00 97.6 66 16 120/64 (82) 94 97.6 10/01/24 07:30 Room Air* 0 21 Total Intake and Output 09/30/24 09/30/24 10/01/24 14:59 22:59 06:59 Intake Total 50 ml 725 ml 1050 ml Balance 50 ml 725 ml 1050 ml medications Current Medications Medications Dose Ordered Sig/Dylan Route Start Time Stop Time Status Last Admin Dose Admin Acetaminophen/ Hydrocodone Bitart 1 tab Q4HP PRN PO 09/29/24 14:15 09/30/24 21:15 1 TAB Ondansetron HCl 4 mg Q4HP PRN IV 09/29/24 14:15 Docusate Sodium 100 mg BIDPRN PRN PO 09/29/24 14:15 Acetaminophen 650 mg Q6HP PRN PO 09/29/24 14:15 Morphine Sulfate 2 mg Q4HPRN PRN IV 09/29/24 14:15 09/29/24 20:56 2 MG Metronidazole 100 ml @ 100 mls/hr Q8HR IV 09/29/24 22:00 10/01/24 05:48 100 MLS/HR Ceftriaxone Sodium 50 ml @ 100 mls/hr DAILY@09 IV 09/30/24 09:00 10/01/24 09:20 100 MLS/HR Patient Own Medication 1 tab QAM PO 09/30/24 07:00 UNV Levothyroxine Sodium 75 mcg QAM PO 09/30/24 07:00 10/01/24 06:08 75 MCG Docusate Sodium 100 mg BID PO 09/30/24 22:00 Examination * Abdomen: Mild tenderness RUQ/LLQ, no rebound or guarding, no ascites on exam. * Skin: No jaundice, no spider angiomas. * Extremities: Bilateral pedal edema present. * Neuro: Non-focal. laboratory and microbiology Laboratory Tests 10/01/24 05:33 Test 10/01/24 05:33 Range/Units Serum Glucose 86 74-106 mg/dL Problem List/Assessment/Plan Problem List/Assessment/Plan Treatment Plan Gastrointestinal / Hepatic * Continue IV ceftriaxone and IV metronidazole for diverticulitis. * Maintain soft diet, monitor tolerance. * Continue pantoprazole IV daily for GI protection. * Daily monitoring of LFTs, INR, CBC. * Monitor for signs of hepatic decompensation. * Outpatient GI consult for cirrhosis management and future outpatient colonoscopy/EGD. * Avoid hepatotoxic medications. Nutrition * Dietitian consult for protein-calorie malnutrition. * Supplement high-protein, low-sodium diet once tolerating solids. * Consider oral vitamin supplementation including thiamine, folate, B12. Hematology * Monitor CBC for pancytopenia. * Vitamin B12, folate, and iron studies ordered. Prophylaxis * GI prophylaxis: Pantoprazole. Case discussed in detail with the attending physician, including the clinical presentation, diagnostic workup, and comprehensive management plan. The patient was present for the discussion and demonstrated understanding of her condition and the proposed plan. Plan discussed with: Patient My Orders My Orders Orders - ROBBI PAINTING Procedure Category Date Status Time Soft Diet DIET 10/01/24 Transmitted Breakfast ROBBI PAINTING RESIDENT Oct 01, 2024 12:00
[2024-10-01] MEDS: CYANOCOBALAMIN (B-12) 1000 MCG/1 ML VIAL IM ONE (16:00)
[2024-10-02] VITALS (7 sets, daily range): BP systolic 96–129; BP diastolic 56–67; PULSE 56–74; RESP 14–18; TEMP 36.5; O2SAT 94–97
[2024-10-02 06:32] LABS: Alanine Aminotransferase 37 U/L (7-40); Anion Gap 9 (5-15); BUN/Creatinine Ratio 18.3 (10.0-20.0); Blood Urea Nitrogen 11 mg/dL (9-23); Carbon Dioxide 26 mmol/L (20-31); Glucose 93 mg/dL (74-106); Magnesium 2.0 mg/dL (1.6-2.6); Potassium 3.8 mmol/L (3.5-5.1); Sodium 144 mmol/L (136-145)
[2024-10-02] MEDS: LEVOTHYROXINE SODIUM 25 MCG TAB PO SCH (06:34)
[2024-10-02 06:36] LABS: Albumin 2.8 g/dL (3.2-4.8); Alkaline Phosphatase 148 U/L (46-116); Bilirubin, Total 3.5 mg/dL (0.2-1.0); Calcium 8.2 mg/dL (8.7-10.4); Chloride 109 mmol/L (98-107); Total Protein 4.9 g/dL (5.7-8.2)
[2024-10-02 07:05] LABS: Hematocrit 38.8 % (36.0-46.0); Hemoglobin 13.5 g/dL (12.2-16.2); Mean Corpuscular Hemoglobin 35.9 pg (28.0-32.0); Mean Corpuscular Volume 102.7 fL (80.0-100.0)
[2024-10-02 08:13] LABS: Total Cells Counted 100.0 (100)
[2024-10-02 08:14] LABS: Macrocytosis Slight
[2024-10-02] MEDS ORDERED: CIPR-173 PO (10:50)
[2024-10-02] MEDS ORDERED: METR-344 PO (10:50)
[2024-10-02] MEDS ORDERED: LEVO-849 PO ×3 (10:50→16:21)
[2024-10-02 11:08] LABS: Hepatitis A Total Antibody Positive (Negative); Hepatitis B Surface Antigen Negative (Negative); Hepatitis C Antibody Negative (Negative)
[2024-10-02] MEDS ORDERED: LEVO100T8 PO (14:04)
--- NOTE | 2024-10-02 16:21 | DVHPN2 ---
Progress Note Date Seen: Oct 02, 2024 Resident Creating Document: ROBBI PAINTING RESIDENT Has the PT tested + for MRSA If YES, has PT been informed?: No Medical Necessity Reason Pt with a Central, PICC or Fol: No Subjective Review of Systems Today, the patient reports significant improvement in abdominal pain (both RUQ and LLQ) and is tolerating a soft diet. She denies nausea, vomiting, GI bleeding, or worsening dysphagia. Bowel movements resumed, and no further acute GI symptoms. Brief Gist of Todays Progress * Abdominal pain improved; patient stable for discharge. * Soft diet well tolerated. * TSH elevated at 6.0. * Abdominal ultrasound: coarse liver consistent with cirrhosis. * Labs show hyperbilirubinemia (5.6), albumin 2.9, pancytopenia with macrocytosis, consistent with cirrhosis. * Patient to be discharged with oral antibiotics and outpatient follow-up. Objective vital signs Vital Sign Date Time Temp Pulse Resp B/P (MAP) Pulse Ox O2 Delivery O2 Flow Rate FiO2 10/02/24 14:29 95 Room Air* 0 21 10/02/24 13:07 36.5 10/02/24 13:05 74 16 102/62 (75) Total Intake and Output 10/01/24 10/01/24 10/02/24 15:00 23:00 07:00 Intake Total 150 ml 950 ml 670 ml Balance 150 ml 950 ml 670 ml medications Current Medications Medications Dose Ordered Sig/Dylan Route Start Time Stop Time Status Last Admin Dose Admin Acetaminophen/ Hydrocodone Bitart 1 tab Q4HP PRN PO 09/29/24 14:15 10/01/24 18:17 1 TAB Ondansetron HCl 4 mg Q4HP PRN IV 09/29/24 14:15 Docusate Sodium 100 mg BIDPRN PRN PO 09/29/24 14:15 Acetaminophen 650 mg Q6HP PRN PO 09/29/24 14:15 Morphine Sulfate 2 mg Q4HPRN PRN IV 09/29/24 14:15 09/29/24 20:56 2 MG Metronidazole 100 ml @ 100 mls/hr Q8HR IV 09/29/24 22:00 10/02/24 05:22 100 MLS/HR Ceftriaxone Sodium 50 ml @ 100 mls/hr DAILY@09 IV 09/30/24 09:00 10/02/24 09:26 100 MLS/HR Patient Own Medication 1 tab QAM PO 09/30/24 07:00 UNV Docusate Sodium 100 mg BID PO 09/30/24 22:00 Levothyroxine Sodium 75 mcg QAM@0600 PO 10/03/24 06:00 Examination * Abdomen: Soft, minimal tenderness RUQ/LLQ, no rebound/guarding. * Skin: No jaundice. * Extremities: Mild pedal edema laboratory and microbiology Laboratory Tests 10/02/24 05:36 Test 10/02/24 05:36 Range/Units Serum Glucose 93 74-106 mg/dL Problem List/Assessment/Plan Problem List/Assessment/Plan Assessment 1. Acute sigmoid diverticulitis resolved with inpatient antibiotics; transitioning to oral therapy. 2. Alcohol-related cirrhosis with chronic liver dysfunction, hyperbilirubinemia, hypoalbuminemia, and macrocytic pancytopenia 3. Hyperbilirubinemia secondary to cirrhosis 4. Protein-calorie malnutrition 5. Macrocytic pancytopenia likely secondary to cirrhosis 6. Esophageal dysphagia outpatient evaluation planned. 7. Hypothyroidism with elevated TSH (6.0). Treatment Plan Gastrointestinal / Hepatic * Discharge on oral antibiotics: * Ciprofloxacin 500 mg PO BID x 7 days (14 tablets) * Metronidazole 500 mg PO TID x 7 days (21 tablets) * Continue Pantoprazole PO daily for GI protection. * Outpatient GI follow-up in 46 weeks. * Schedule colonoscopy after diverticulitis resolution. * Avoid hepatotoxic agents; monitor for signs of hepatic decompensation. Nutrition * Encourage high-protein, low-sodium diet. * Outpatient nutrition consult. * Vitamin supplementation (B12, folate, thiamine) recommended. Hematology * Monitor CBC outpatient. * Follow up pending B12, folate, iron studies. Case discussed in detail with the attending physician, including the clinical presentation, diagnostic workup, and comprehensive management plan. The patient was present for the discussion and demonstrated understanding of her condition and the proposed plan. Plan discussed with: Patient ROBBI PAINTING RESIDENT Oct 02, 2024 16:21
--- NOTE | 2024-10-02 17:18 | DVHDS2 ---
Discharge Summary Date of Admission Sep 29, 2024 at 14:13 Date of Discharge: Oct 02, 2024 Labs/Diagnostic Data: Laboratory Results Test 10/02/24 05:36 10/01/24 05:33 09/30/24 05:29 09/29/24 12:00 White Blood Count 2.2 10^3/uL (4.4-10.8) Red Blood Count 3.78 10^6/uL (4.0-5.20) Hemoglobin 13.5 g/dL (12.2-16.2) Hematocrit 38.8 % (36.0-46.0) Mean Corpuscular Volume 102.7 fL (80.0-100.0) Mean Corpuscular Hemoglobin 35.9 pg (28.0-32.0) Mean Corpuscular Hemoglobin Concent 34.9 g/dL (32.0-36.0) Red Cell Distribution Width 16.0 % (11.8-14.3) Platelet Count 97 10^3/uL (140-450) Mean Platelet Volume 9.6 fL (6.9-10.8) Neutrophils (%) (Auto) % (37.0-80.0) Lymphocytes (%) (Auto) % (10.0-50.0) Monocytes (%) (Auto) % (0.0-12.0) Basophils (%) (Auto) % (0.0-2.0) Neutrophils # (Auto) 10 ^3/uL (1.6-8.6) Lymphocytes # (Auto) 10 ^3/uL (0.4-5.4) Monocytes # (Auto) 10 ^3/uL (0-1.3) Differential Total Cells Counted 100.0 (100) Neutrophils % (Manual) 59 (37.0-80.0) Band Neutrophils % (Manual) 0 Lymphocytes % (Manual) 27 (10.0-50.0) Monocytes % (Manual) 10 (0-12) Eosinophils % (Manual) 4 (0-7) Basophils % (Manual) 0 (0.0-2.0) Metamyelocytes % (manual) 0 Myelocytes % (Manual) 0 Promyelocytes % (Manual) 0 Blast Cells % (Manual) 0 Reactive Lymphocytes 0 Platelet Estimate Decreased Macrocytosis Slight Sodium Level 144 mmol/L (136-145) Potassium Level 3.8 mmol/L (3.5-5.1) Chloride Level 109 mmol/L (98-107) Carbon Dioxide Level 26 mmol/L (20-31) Anion Gap 9 (5-15) Blood Urea Nitrogen 11 mg/dL (9-23) Creatinine 0.60 mg/dL (0.550-1.02) Glomerular Filtration Rate Calc 98 mL/min (>90) BUN/Creatinine Ratio 18.3 (10.0-20.0) Serum Glucose 93 mg/dL (74-106) Calcium Level 8.2 mg/dL (8.7-10.4) Magnesium Level 2.0 mg/dL (1.6-2.6) Total Bilirubin 3.5 mg/dL (0.2-1.0) Aspartate Amino Transferase (AST) 66 U/L (13-40) Alanine Aminotransferase (ALT) 37 U/L (7-40) Alkaline Phosphatase 148 U/L (46-116) Total Protein 4.9 g/dL (5.7-8.2) Albumin 2.8 g/dL (3.2-4.8) Eosinophils (%) (Auto) 3.7 % (0.0-7.0) Eosinophils # (Auto) 0.1 10 ^3/uL (0-0.8) Basophils # (Auto) 0 10 ^3/uL (0-0.2) Nucleated Red Blood Cells 0.2 % Prothrombin Time 13.2 sec (9.3-11.8) Prothrombin Time INR 1.28 (0.9-1.15) Ferritin 305.8 ng/mL (10-291) Triglycerides Level 67 mg/dL (< 150) Cholesterol Level 114 mg/dL (< 200) LDL Cholesterol 61 mg/dL (< 100) HDL Cholesterol 33 mg/dL (40-59) Lipase 39 U/L (12-53) Thyroid Stimulating Hormone (TSH) 6.00 uIU/mL (0.55-4.78) Hepatitis A Antibody Total Positive (Negative) Hepatitis B Surface Antigen Negative (Negative) Hepatitis B Surface Antibody Negative (Negative) Hepatitis B Core Total Antibody Negative (Negative) Hepatitis C Antibody Negative (Negative) Troponin I High Sensitivity 16 ng/L (</=34) Test 09/29/24 08:36 Urine Color Yellow (Yellow) Urine Clarity Turbid (Clear) Urine pH 5.5 (5.0-9.0) Urine Specific [place] 1.019 (1.001-1.035) Urine Protein Negative (Negative) Urine Ketones Negative (Negative) Urine Blood Trace /uL (Negative) Urine Nitrite Negative (Negative) Urine Bilirubin Negative (Negative) Urine Urobilinogen 3 mg/dL (Negative) Urine Leukocyte Esterase 2+ /uL (Negative) Urine RBC 3 /hpf (0 - 4) Urine Microscopic WBC 5 /HPF (0-5) Urine Squamous Epithelial Cells Few /hpf (<5) Urine Bacteria None seen /hpf (None Seen) Urine Mucus Few (None Seen) Urine Glucose Normal mg/dL (Normal) Other Laboratory Tests 10/02/24 05:36 Brief Hx & Hospital Course: Final diagnoses: Acute diverticulitis Fatty liver Status post cholecystectomy many years ago Obesity Hypothyroidism Fibromyalgia Elevated liver function tests Hyperbilirubinemia Hypoalbuminemia Mild protein malnutrition UTI Obstructive sleep apnea 69 year old female was admitted for abdominal pain She also had left lower quadrant pain due to diverticulitis She had US: coarse liver suspicious for cirrhosis IV antibiotics were given TSH was high, she needs an increase in the Synthroid dose D/C home on PO antibiotics Increase Synthroid to 100 mg qd Condition at Discharge: Stable Final Diagnosis/Problems List Abdominal pain Acute diverticulitis Fatty liver Status post cholecystectomy many years ago Obesity Hypothyroidism Fibromyalgia Elevated liver function tests Hyperbilirubinemia Hypoalbuminemia Mild protein malnutrition UTI Obstructive sleep apnea Discharge Disposition: Home SNF Discharge Will this Physician continue t: No Discharge Instruct/Medications Diet: Cardiac 2g Na,low cholest Diet comment: Advance as tolerated Activity: No Restrictions, As Tolerated Follow Up/Referral: PCP KAILEE Medications: Increase Synthroid to 100 mcg qd Scheduled Ciprofloxacin Hcl (Cipro), 1 TAB PO BID Levothyroxine Sodium (Synthroid Tablet), 1 TAB PO DAILY Metronidazole (Flagyl), 1 TAB PO TID Discontinued Medications Levothyroxine Sodium (Synthroid), 1 TAB PO QAM, (Reported) Levothyroxine Sodium (Levothyroxine Sodium), 100 MCG PO QAM, (Reported) Levothyroxine Sodium (Synthroid Tablet), 1 TAB PO DAILY, (Reported) Discharge Statement: "Patient was advised to return to the ER or call 911 if any headaches, dizziness, shortness of breath, chest pain, abdominal pain, bleeding, fevers, or worsening of medical condition. Patient was counseled about treatment plan, medications, possible side effects, patientverbalized understanding. All questions were answered to the best of my ability. This discharge took greater then 30 minutes in planning, reviewing documentation, counseling the patient, and discussing with other team members." ASSESSMENT ASSESSMENT Assessment Abdominal pain Acute diverticulitis Fatty liver Status post cholecystectomy many years ago Obesity Hypothyroidism Fibromyalgia Elevated liver function tests Hyperbilirubinemia Hypoalbuminemia Mild protein malnutrition UTI Obstructive sleep apnea Date of Service: Oct 02, 2024 Billing Provider: MICHELLE POWELL MD Common Visit Codes: 81423-JRQ/OBS DISCH DAY >30min MICHELLE POWELL MD Oct 02, 2024 17:18
[2024-10-03] MEDS ORDERED: LEVOTHYROXINE SODIUM 25 MCG TAB PO SCH ×2 (06:00→07:00)
== END 2024-10-02 16:00 | disposition home or self-care (01) | DRG 392 ==
LOC: ER 07:46 → OVERFLOW 14:13 → EAST 21:27
PROVIDERS: ADMIT Internal Medicine Geriatric Medicine; ATTEND Internal Medicine Geriatric Medicine
DX: K57.32 Diverticulitis of large intestine without perforation or abscess without bleeding (principal); E44.1 Mild protein-calorie malnutrition; D61.818 Other pancytopenia; N39.0 Urinary tract infection, site not specified; Z68.42 Body mass index [BMI] 45.0-49.9, adult; E88.09 Other disorders of plasma-protein metabolism, not elsewhere classified; R13.10 Dysphagia, unspecified; K70.30 Alcoholic cirrhosis of liver without ascites; E03.9 Hypothyroidism, unspecified; K76.0 Fatty (change of) liver, not elsewhere classified; E66.9 Obesity, unspecified; G47.33 Obstructive sleep apnea (adult) (pediatric); M79.7 Fibromyalgia; Z90.49 Acquired absence of other specified parts of digestive tract; Z90.710 Acquired absence of both cervix and uterus; Z88.8 Allergy status to other drugs, medicaments and biological substances
CPT/HCPCS: 36415; 71045; 74176; 76700; 80048; 80053; 80061; 81001; 82728; 83690; 83735; 84443; 84484; 85007; 85025; 85027; 85610; 86038; 86704; 86706; 86708; 86803; 87340; 94660; 96365; G0378; J3490

== ENCOUNTER 2024-12-20 05:26 | Inpatient (IN) | payer OTHER ==
[~2024-12-20] VITALS: Ht 152.4 cm; Wt 116.0 kg
[~2024-12-20 05:26] MED LIST: CIPR-173 PO; LEVO-849 PO; METR-344 PO
--- NOTE | 2024-12-20 06:37 | ED.PDOC ---
General HPI Comments 69 y.o female presents to the ED for a chief complaint of left sided flank pain that started 2 days ago. Patient describes pain as sharp, non radiating, and worsens with movement. Patient reports being admitted for the same pain twice in the past but is unsure of specific diagnosis. Patient at this time states pain is unbearable and is unable to ambulate. She denies any dysuria, hematuria, fever, chills, back pain, or recent falls. Chief Complaint: Flank Pain Time Seen by MD: 06:26 Primary Care Provider: RACHEL Reviewed notes: Nurses Notes, Medications, Allergies Allergies: Coded Allergies: Iodine (Verified Allergy, Unknown, 09/29/24) Home Meds Active Scripts Levothyroxine Sodium (SYNTHROID TABLET) 100 Mcg Tb, 1 TAB PO DAILY, #30 TAB 5 Refills Prov:MICHELLE POWELL MD 10/02/24 Ciprofloxacin Hcl (Cipro) 500 Mg Tab, 1 TAB PO BID, #14 TAB Prov:MICHELLE POWELL MD 10/02/24 Metronidazole (Flagyl) 500 Mg Tab, 1 TAB PO TID, #21 TAB Prov:MICHELLE POWELL MD 10/02/24 Information Source: Patient Mode of Arrival: Ambulatory Timing: Days (2) Duration: Since onset Onset: Spontaneous Symptoms: None History of: None Location: (L)Flank associated signs and symptoms: Flank Pain Past Medical History PAST MEDICAL HISTORY: Arthritis, Thyroid Past Medical History (Other): chronic back pain Surgical History: Appendectomy, Cholecystectomy, Hysterectomy 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 [employer]IST Hx Family History Family History: Unknown Social History Smoker: Non-Smoker Alcohol: Denies ETOH Use Drugs: Denies Drug Use Lives In: Home Constitutional: denies: chills, diaphoresis, fatigue, fever, malaise, sweats, weakness, others EENTM: denies: blurred vision, double vision, ear bleeding, ear discharge, ear drainage, ear pain, ear ringing, eye pain, eye redness, hearing loss, mouth pain, mouth swelling, nasal discharge, nose bleeding, nose congestion, nose pain, photophobia, tearing, throat pain, throat swelling, voice changes, others Respiratory: denies: cough, hemoptysis, orthopnea, SOB at rest, shortness of breath, SOB with excertion, stridor, wheezing, others Cardiovascular: denies: chest pain, dizzy spells, diaphoresis, Dyspnea on exertion, edema, irregular heart beat, left arm pain, lightheadedness, palpitations, PND, syncope, others Gastrointestinal: denies: abdomen distended, abdominal pain, blood streaked bowels, constipated, diarrhea, dysphagia, difficulty swallowing, hematemesis, melena, nausea, poor appetite, poor fluid intake, rectal bleeding, rectal pain, vomiting, others Genitourinary: reports: flank pain; denies: abnormal vagina bleeding, burning, dyspareunia, dysuria, frequency, hematuria, incontinence, pain, , vagina discharge, urgency, others Neurological: denies: dizziness, fainting, headache, left sided numbness, left sided weakness, numbness, paresthesia, pre-existing deficit, right sided numbness, right sided weakness, seizure, speech problems, tingling, tremors, weakness, others Musculoskeletal: denies: back pain, gout, joint pain, joint swelling, muscle pain, muscle stiffness, neck pain, others Integumetry: denies: bruises, change in color, change in hair/nails, dryness, laceration, lesions, lumps, rash, wounds, others Allergic/Immunocompromised: denies: Difficulty Healing, Frequent Infections, Hives, Itching, others Hematologic/Lymphatic: denies: anemia, blood clots, easy bleeding, easy bruising, swollen glands, others Endocrine: denies: excessive hunger, excessive sweating, excessive thirst, excessive urination, flushing, intolerance to cold, intolerance to heat, unexplained weight gain, unexplained weight loss, others Psychiatric: denies: anxiety, bipolar disorder, depression, hopeless, panic disorder, schizophrenia, sleepless, suicidal, others All Other Systems: Reviewed and Negative Physical Exam General Appearance: Moderate Distress, Obese HEENT: Normal ENT Inspection, Pharynx Normal, TMs Normal Neck: Full Range of Motion, Non-Tender, Normal, Normal Inspection Respiratory: Chest Non-Tender, Lungs Clear, No Accessory Muscle Use, No Respiratory Distress, Normal Breath Sounds Cardiovascular: No Edema, No JVD, No Murmur, No Gallop, Normal Peripheral Pulses, Regular Rate/Rhythm Breast Exam: Deferred Gastrointestinal: No Organomegaly, Non Tender, No Pulsatile Mass, Normal Bowel Sounds, Soft Genitalia: Deferred Pelvic: Deferred Rectal: Deferred Extremities: No calf tenderness, Normal capillary refill, Normal inspection, Normal range of motion, Non-tender, No pedal edema Musculoskeletal : Apperance: Normal Neurologic: Alert, adult manager II-XII nml as Tested, No Motor Deficits, Normal Affect, Normal Mood, No Sensory Deficits Cerebellar Function: NOT DONE Reflexes: NOT DONE Skin: Dry, Normal Color, Warm Peripheral Pulses: 3+ Radial (R), 3+ Radial (L) Lymphatic: No Adenopathy Was a procedure done? Was a procedure done?: No Differential Diagnosis Kidney stone (Female): Musculoskeletal pain, Pyelonephritis, Strain X-Ray, Labs, Meds, VS Vital Signs Date Time Temp Pulse Resp B/P (MAP) Pulse Ox O2 Delivery O2 Flow Rate FiO2 12/20/24 07:50 63 16 96 Room Air 12/20/24 07:50 98.3 63 16 112/70 (84) 96 98.3 12/20/24 07:50 63 16 96 Room Air* 0 21 12/20/24 05:28 97.6 75 18 159/88 96 97.6 Lab Test 12/20/24 06:48 12/20/24 05:33 12/20/24 05:08 Range/Units White Blood Count 2.6 L 4.4-10.8 10^3/uL Red Blood Count 4.15 4.0-5.20 10^6/uL Hemoglobin 14.7 12.2-16.2 g/dL Hematocrit 43.1 36.0-46.0 % Mean Corpuscular Volume 103.9 H 80.0-100.0 fL Mean Corpuscular Hemoglobin 35.4 H 28.0-32.0 pg Mean Corpuscular Hemoglobin Concent 34.1 32.0-36.0 g/dL Red Cell Distribution Width 14.6 H 11.8-14.3 % Platelet Count 90 L 140-450 10^3/uL Mean Platelet Volume 9.2 6.9-10.8 fL Neutrophils (%) (Auto) 44.6 37.0-80.0 % Lymphocytes (%) (Auto) 40.1 10.0-50.0 % Monocytes (%) (Auto) 10.1 0.0-12.0 % Eosinophils (%) (Auto) 3.8 0.0-7.0 % Basophils (%) (Auto) 1.4 0.0-2.0 % Neutrophils # (Auto) 1.2 L 1.6-8.6 10 ^3/uL Lymphocytes # (Auto) 1.0 0.4-5.4 10 ^3/uL Monocytes # (Auto) 0.3 0-1.3 10 ^3/uL Eosinophils # (Auto) 0.1 0-0.8 10 ^3/uL Basophils # (Auto) 0 0-0.2 10 ^3/uL Nucleated Red Blood Cells 0.3 % Sodium Level 144 136-145 mmol/L Potassium Level 4.4 3.5-5.1 mmol/L Chloride Level 110 H 98-107 mmol/L Carbon Dioxide Level 27 20-31 mmol/L Anion Gap 7 5-15 Blood Urea Nitrogen 14 9-23 mg/dL Creatinine 0.60 0.550-1.02 mg/dL Glomerular Filtration Rate Calc 98 >90 mL/min BUN/Creatinine Ratio 23.3 H 10.0-20.0 Serum Glucose 88 74-106 mg/dL Calcium Level 8.6 L 8.7-10.4 mg/dL Troponin I High Sensitivity 19 19 </=34 ng/L Lipase 54 H 12-53 U/L Urine Color Yellow Yellow Urine Clarity Clear Clear Urine pH 6.0 5.0-9.0 Urine Specific [place] 1.025 1.001-1.035 Urine Protein Negative Negative Urine Ketones Negative Negative Urine Blood Trace H Negative /uL Urine Nitrite Negative Negative Urine Bilirubin Negative Negative Urine Urobilinogen 3 H Negative mg/dL Urine Leukocyte Esterase Negative Negative /uL Urine RBC 2 0 - 4 /hpf Urine Microscopic WBC 1 0-5 /HPF Urine Squamous Epithelial Cells Few <5 /hpf Urine Bacteria None seen None Seen /hpf Urine Mucus Few None Seen Urine Glucose Normal Normal mg/dL Current Medications Medications (Trade) Dose Ordered Sig/Dylan Route Start Time Stop Time Status Last Admin Ketorolac Tromethamine (Toradol Injection) 30 mg ONCE ONCE IV 12/20/24 06:45 12/20/24 06:46 DC 12/20/24 08:37 Patient alert pain Complaining of flank pain. Vitals stable. Answering questions. She is obese. Chronic back pain. States that her back pain has resolved. Of the pain is other side. Blood pressure elevated. Saturation pristine on room air. Denies any urinary symptoms. CT scan of the abdomen reviewed does not show any acute changes. Lipase is elevated. Explained to the patient. Continue monitoring. Time of 1ST Reevaluation: 07:00 Reevaluation 1ST: Unchanged Patient Education/Counseling: Diagnosis, Treatment, Prognosis Family Education/Counseling: Diagnosis, Treatment, Prognosis SEPSIS Sepsis Screen Date sepsis recognized/suspect: Dec 20, 2024 Time Sepsis recognized/suspect: 0532 Recent Procedure: No On Antibiotic Therapy: No Respiratory Rate >20: No Heart Rate >90: No Temp<36 C (96.8 F) or >38.3 C: No SBP <90 or MAP <65 mmHG: No New Acute Mental Status Change: No Is the patient on CPAP, BIPAP,: No Physician Orders Troponin-I Hs (12/20/24 12:00) Ct Ab Pel Wo Con-No Oral Or Iv (12/20/24 06:38) Vital Signs Date Time Temp Pulse Resp B/P (MAP) Pulse Ox O2 Delivery O2 Flow Rate FiO2 12/20/24 07:50 63 16 96 Room Air 12/20/24 07:50 98.3 63 16 112/70 (84) 96 98.3 12/20/24 07:50 63 16 96 Room Air* 0 21 12/20/24 05:28 97.6 75 18 159/88 96 97.6 Laboratory Tests Test 12/20/24 06:48 White Blood Count 2.6 10^3/uL (4.4-10.8) L Medications Medications Dose Ordered Sig/Dylan Route Start Time Stop Time Status Last Admin Dose Admin Ketorolac Tromethamine 30 mg ONCE ONCE IV 12/20/24 06:45 12/20/24 06:46 DC 12/20/24 08:37 Departure 1 Departure Time of Disposition: 06:58 Impression: Primary Impression: Intractable abdominal pain Disposition: 09 ADMITTED INPATIENT Admit to: Med Surg Condition: Guarded Critical Care Note Critical Care Time?: No Stability Stability form required: No I personally scribed for LINAD MASSEY MD ([email or web address]) on 12/20/24 at 06:37. Electronically submitted by Emily Boles ([facility]). LINDA MASSEY MD Dec 20, 2024 06:37
[2024-12-20 07:19] LABS: Hematocrit 43.1 % (36.0-46.0); Hemoglobin 14.7 g/dL (12.2-16.2)
[2024-12-20 07:21] LABS: Potassium 4.4 mmol/L (3.5-5.1); Sodium 144 mmol/L (136-145)
[2024-12-20 07:22] LABS: Anion Gap 7 (5-15); Carbon Dioxide 27 mmol/L (20-31); Mean Corpuscular Hemoglobin 35.4 pg (28.0-32.0); Mean Corpuscular Volume 103.9 fL (80.0-100.0); Nucleated Red Blood Cells % 0.3 %
[2024-12-20 07:27] LABS: BUN/Creatinine Ratio 23.3 (10.0-20.0); Blood Urea Nitrogen 14 mg/dL (9-23); Glucose 88 mg/dL (74-106)
[2024-12-20 07:44] LABS: Calcium 8.6 mg/dL (8.7-10.4); Chloride 110 mmol/L (98-107); Lipase 54 U/L (12-53)
[2024-12-20 07:45] LABS: Urine Protein, UAD Negative (Negative)
[2024-12-20 07:50] VITALS: PULSE 63; RESP 16; O2SAT 96
[2024-12-20] MEDS: KETOROLAC TROMETH 30 MG/ML 1ML VIAL IV ONE (08:37)
--- NOTE | 2024-12-20 09:11 | DVH ---
CT CT AB PEL WO CON-NO ORAL OR IV INDICATION: stone EXAM DATE: 12/20/2024 08:09 AM COMPARISON: US ABDOMEN COMPLETE SONOGRAM on DOS: 09/30/24, CT CT AB PEL WO CON-NO ORAL OR IV on DOS: , US ABDOMEN LIMITED on DOS: 04/30/24 RADIATION DOSE: CTDIvol: 25.08 mGy, DLP: 1430.22 mGy*cm PROCEDURE: Helical CT images were obtained of the abdomen and pelvis without IV contrast Sagittal and coronal reconstructions are provided. ORAL CONTRAST: None. ADDITIONAL IMAGES / REFORMATS: None All C T scans at this medical facility are performed using dose modulation techniques as appropriate to a p erformed exam including the following: Automated exposure control was utilized; adjustment of the MA and/or KV according to patient size; and use of iterative reconstruction technique. FINDINGS: LUNG BASE: Normal. LIVER: Nodular liver seen with cirrhosis. Subcentimeter cysts too small to characterize. GALLBLADDER AND BILIARY TREE: Nishi clips are noted. No intra- or extrahepatic biliary ductal dilatio n. PANCREAS: Normal. SPLEEN: Normal. BOWEL: Moderate colonic diverticulosis. ADRENALS: Normal. KIDNEYS AND URETER: Normal. BLADDER: Normal. REPRODUCTIVE ORGANS: Absent uterus. LYMPH NODES:No lymphadenopathy. PERITONEUM: No ascites or free air. No other fluid collection. VESSELS: Scattered atherosclerotic calcifications are noted. RETROPERITONEUM: Normal. ABDOMINAL WALL: Small fat containing umbilical hernia. BONES: Scattered osseous degenerative changes are noted. IMPRESSION: No acute intraabdominal abnormality. No kidney stones.
--- NOTE | 2024-12-20 11:54 | DVHHP2 ---
History of Present Illness History of Present Illness Patient is 69-year-old female who came to the hospital with a chief complaint of left-sided flank pain. Left flank pain onset two days ago, nonradiating, worsened with movement, had similar kind of symptoms few months ago when she was diagnosed with diverticulosis and diverticulitis, however this time she has pain more over bedside compared to anterior part of abdomen. Patient's last bowel movement was yesterday, she does have back pain, but according to patient her pain is different from her breakthrough over lumbar spine pain. Patient denying any other symptoms including nausea, vomiting, epigastric pain, chest pain, shortness of breath, any other symptoms. Patient has been recently diagnosed with liver cirrhosis, diverticulosis and diverticulitis, patient was advised to follow up in outpatient setting for GI few months ago when she hospitalized. No any other new complaints Past medical history: Cirrhosis, hypothyroidism, diverticulosis Surgical history: Hysterectomy, gallbladder wall, appendectomy, shoulder surgery, trigger finger Family history: Mother's side liver disease, father side unknown cancer type. Social history: She smoked 5 degree years where she was teenager. Drinks 2-3 beers per week for past 40-50 years. Allergies: Denies Home medication: Lasix, Synthroid, sleeping pills. Review of Systems Constitutional: No: Fever, Chills, Sweats, Weakness, Malaise, Other Eyes: No: Pain, Vision change, Conjunctivae inflammation, Eyelid inflammation, Other, Redness ENT: No: Ear pain, Ear discharge, Nose pain, Nose discharge, Nose congestion, Mouth pain, Mouth swelling, Throat pain, Throat swelling, Other Respiratory: No: Cough, Dry, Shortness of breath, SOB with excertion, Wheezing, Hemoptysis, Pleuritic Pain, Sputum, Wheezing, Other Cardiovascular: No: Chest Pain, Palpitations, Orthopnea, Paroxysmal Noc. Dyspnea, Edema, Lt Headedness, Other Gastrointestinal: Abdominal Pain Genitourinary: No Dysuria, No Frequency, No Incontinence, No Hematuria, No Retention, No Other Musculoskeletal: No: other, neck pain, shoulder pain, arm pain, back pain, hand pain, leg pain, foot pain Skin: No: Rash, Lesions, Jaundice, Bruising, Other Allergies: Coded Allergies: Iodine (Verified Allergy, Unknown, 09/29/24) Medications Current Medications Medications Dose Ordered Sig/Dylan Route Start Time Stop Time Status Last Admin Dose Admin Hydromorphone HCl 0.5 mg Q4HP PRN IV 12/20/24 12:00 UNV Exam Vital Signs Vital Signs Date Time Temp Pulse Resp B/P (MAP) Pulse Ox O2 Delivery O2 Flow Rate FiO2 12/20/24 10:31 85 18 134/89 (104) 99 12/20/24 07:50 Room Air 12/20/24 07:50 98.3 98.3 12/20/24 07:50 0 21 Exam General Appearance: Cooperative. Well developed. Well nourished. NAD Head Exam: Normal inspection Neck Exam: Normal inspection. Non-tender. Normal alignment Pulmonary/Respiratory: Chest non-tender. Clear bilateral breath sounds Cardiovascular/Chest: Regular rate and rhythm. No murmurs. No JVD. Peripheral Pulses: 2+ Radial (R). 2+ Radial (L). 2+ Pedal (R). 2+ Pedal (L) Abdominal Exam: Normal bowel sounds. Soft. Tenderness over left costophrenic angle on deep palpation. Hepatomegaly. No masses Ankle Exam: Negative ankle edema Lower extremities: Negative lower extremity edema Neuro/Mental Status: A&O x4. Coherent Thoughts/Psych: Normal thought pattern. Appropriate mood and affect. Good judgement and insight Appearance: In no acute distress Skin Exam: Normal inspection. Normal color. Warm. Dry Labs/Xrays Labs Test 12/20/24 06:48 12/20/24 05:33 Range/Units White Blood Count 2.6 L 4.4-10.8 10^3/uL Red Blood Count 4.15 4.0-5.20 10^6/uL Hemoglobin 14.7 12.2-16.2 g/dL Hematocrit 43.1 36.0-46.0 % Mean Corpuscular Volume 103.9 H 80.0-100.0 fL Mean Corpuscular Hemoglobin 35.4 H 28.0-32.0 pg Mean Corpuscular Hemoglobin Concent 34.1 32.0-36.0 g/dL Red Cell Distribution Width 14.6 H 11.8-14.3 % Platelet Count 90 L 140-450 10^3/uL Mean Platelet Volume 9.2 6.9-10.8 fL Neutrophils (%) (Auto) 44.6 37.0-80.0 % Lymphocytes (%) (Auto) 40.1 10.0-50.0 % Monocytes (%) (Auto) 10.1 0.0-12.0 % Eosinophils (%) (Auto) 3.8 0.0-7.0 % Basophils (%) (Auto) 1.4 0.0-2.0 % Neutrophils # (Auto) 1.2 L 1.6-8.6 10 ^3/uL Lymphocytes # (Auto) 1.0 0.4-5.4 10 ^3/uL Monocytes # (Auto) 0.3 0-1.3 10 ^3/uL Eosinophils # (Auto) 0.1 0-0.8 10 ^3/uL Basophils # (Auto) 0 0-0.2 10 ^3/uL Nucleated Red Blood Cells 0.3 % Sodium Level 144 136-145 mmol/L Potassium Level 4.4 3.5-5.1 mmol/L Chloride Level 110 H 98-107 mmol/L Carbon Dioxide Level 27 20-31 mmol/L Anion Gap 7 5-15 Blood Urea Nitrogen 14 9-23 mg/dL Creatinine 0.60 0.550-1.02 mg/dL Glomerular Filtration Rate Calc 98 >90 mL/min BUN/Creatinine Ratio 23.3 H 10.0-20.0 Serum Glucose 88 74-106 mg/dL Calcium Level 8.6 L 8.7-10.4 mg/dL Troponin I High Sensitivity 19 </=34 ng/L Lipase 54 H 12-53 U/L Urine Color Yellow Yellow Urine Clarity Clear Clear Urine pH 6.0 5.0-9.0 Urine Specific [place] 1.025 1.001-1.035 Urine Protein Negative Negative Urine Ketones Negative Negative Urine Blood Trace H Negative /uL Urine Nitrite Negative Negative Urine Bilirubin Negative Negative Urine Urobilinogen 3 H Negative mg/dL Urine Leukocyte Esterase Negative Negative /uL Urine RBC 2 0 - 4 /hpf Urine Microscopic WBC 1 0-5 /HPF Urine Squamous Epithelial Cells Few <5 /hpf Urine Bacteria None seen None Seen /hpf Urine Mucus Few None Seen Urine Glucose Normal Normal mg/dL SEPSIS Sepsis Screen Date sepsis recognized/suspect: Dec 20, 2024 Time Sepsis recognized/suspect: 0750 Recent Procedure: No On Antibiotic Therapy: No Respiratory Rate >20: No Heart Rate >90: No Temp<36 C (96.8 F) or >38.3 C: No SBP <90 or MAP <65 mmHG: No New Acute Mental Status Change: No Is the patient on CPAP, BIPAP,: No Physician Orders Troponin-I Hs (12/20/24 12:00) Ct Ab Pel Wo Con-No Oral Or Iv (12/20/24 06:38) Admit (12/20/24 11:50) Code Status (12/20/24 11:50) Vital Signs .PER UNIT PROTOCOL (12/20/24 11:50) Review Orders With Adm.Md (12/20/24 11:50) Regular Diet (12/20/24 Lunch) Notify Md Of Changes From Base (12/20/24 11:50) Advance Directive (12/20/24 11:50) Patient Condition (12/20/24 11:50) Allergies (12/20/24 11:50) Hydromorphone Injection (Dilaudid Inject (12/20/24 12:00) * [facility] (12/20/24 11:52) Folate (Folic Acid) (12/20/24 11:52) Vitamin B12 (12/20/24 11:52) Vital Signs Date Time Temp Pulse Resp B/P (MAP) Pulse Ox O2 Delivery O2 Flow Rate FiO2 12/20/24 10:31 85 18 134/89 (104) 99 12/20/24 07:50 63 16 96 Room Air 12/20/24 07:50 98.3 63 16 112/70 (84) 96 98.3 12/20/24 07:50 63 16 96 Room Air* 0 21 12/20/24 05:28 97.6 75 18 159/88 96 97.6 Laboratory Tests Test 12/20/24 06:48 White Blood Count 2.6 10^3/uL (4.4-10.8) L Medications Medications Dose Ordered Sig/Dylan Route Start Time Stop Time Status Last Admin Dose Admin Ketorolac Tromethamine 30 mg ONCE ONCE IV 12/20/24 06:45 12/20/24 06:46 DC 12/20/24 08:37 30 MG Assessment/Plan Assessment/Plan Left flank pain Liver cirrhosis Diverticulosis -Lasix 20 mg p.o. daily -GI consultation -patient will need colonoscopy given recent diverticulitis. -pain management: [place] one tablet p.o. q.6 as needed, for severe pain hydromorphone. -pantoprazole 40 mg p.o. daily -CT scan of abdomen:No acute intraabdominal abnormality. No kidney stones. Hyperbilirubinemia secondary to cirrhosis -continue to monitor liver function Microcytic pancytopenia likely due to cirrhosis -WBC 2.6, MCV 100.9, platelets 90 -continue to monitor -no active bleeding -nutritional supplement with B12, folic acid -follow up with pending B12, folic acid. Secondary coagulopathy -PT 13.2, INR 1.28 on 10/01/2024 -no active bleeding Mild elevated lipase -lipase 54 on 12/20/2024 -avoid hepatotoxic agents Protein calorie malnutrition -encourage protein intake, at least 1 milligram/kg. Hypothyroidism -continue levothyroxine 100 mcg p.o. daily -TSH 3.47 PUD prophylaxis with Protonix DVT prophylaxis SCD if needed, patient is ambulatory. Goals of care discussed greater than 24 weeks, full code status. Plan discussed with Dr. Bragg Plan discussed with: Patient, Other My Orders Orders - JOESPH HOLLIDAY Procedure Category Date Status Time Admit ADMIT 12/20/24 Transmitted 11:50 Code Status CODE 12/20/24 Transmitted 11:50 Vital Signs [facility] 12/20/24 In Process 11:50 Review Orders With LUZ 12/20/24 In Process Adm. 11:50 Regular Diet DIET 12/20/24 Transmitted Lunch Notify Md Of Changes [facility] 12/20/24 In Process From Base 11:50 Advance Directive [facility] 12/20/24 In Process 11:50 Patient Condition ORDERS 12/20/24 Transmitted 11:50 Allergies [facility] 12/20/24 In Process 11:50 Hydromorphone PHA 12/20/24 Logged Injection (Dilaudid 12:00 * [facility] CONS 12/20/24 Transmitted 11:52 Folate (Folic Acid) LAB 12/20/24 Transmitted 11:52 Vitamin B12 LAB 12/20/24 Transmitted 11:52 Date of Service: Dec 20, 2024 Billing Provider: ENRIQUE BRAGG MD Common Visit Codes: [id number] INP/OBS CARE (HIGH) Secondary Visit Codes: [id number] CARE PLAN 30 MINUTES JOESPH HOLLIDAY Dec 20, 2024 11:54
[2024-12-20] MEDS: LEVOTHYROXINE SODIUM 100 MCG TAB PO ONE (12:00)
[2024-12-20] MEDS ORDERED: HYDROcodone-ACET 5/325MG TAB PO PRN (12:00)
[2024-12-20] MEDS: PANTOPRAZOLE 40 MG TAB PO ONE (12:38)
[2024-12-20 12:42] VITALS: BP 156/69; PULSE 70; RESP 18; TEMP 97.8; O2SAT 97
[2024-12-20 12:54] VITALS: BP 156/69; PULSE 70; RESP 18; TEMP 97.8; O2SAT 97
[2024-12-20 17:13] VITALS: BP 150/62; PULSE 67; RESP 18; TEMP 97.9; O2SAT 96
[2024-12-20] MEDS: HYDROMORPHONE HCL 1 MG/ML INJ IV PRN (20:12)
[2024-12-20] MEDS: FUROSEMIDE 20 MG TAB PO ONE (20:16)
[2024-12-20 21:09] VITALS: BP 134/63; PULSE 63; RESP 18; TEMP 98; O2SAT 93
[2024-12-21 01:01] VITALS: BP 109/47; PULSE 58; RESP 20; TEMP 97.9; O2SAT 93
[2024-12-21 05:00] VITALS: BP 140/62; PULSE 64; RESP 20; TEMP 98.1; O2SAT 96
[2024-12-21 05:42] LABS: Mean Corpuscular Volume 102.4 fL (80.0-100.0)
[2024-12-21 05:44] LABS: Hematocrit 41.0 % (36.0-46.0); Hemoglobin 14.3 g/dL (12.2-16.2); Mean Corpuscular Hemoglobin 35.7 pg (28.0-32.0); Nucleated Red Blood Cells % 0.3 %
[2024-12-21] MEDS: LEVOTHYROXINE SODIUM 100 MCG TAB PO SCH (05:56)
[2024-12-21] MEDS: PANTOPRAZOLE 40 MG TAB PO SCH (05:56)
[2024-12-21 06:02] LABS: Alanine Aminotransferase 46 U/L (7-40); Albumin 2.9 g/dL (3.2-4.8); Alkaline Phosphatase 103 U/L (46-116); Anion Gap 10 (5-15); BUN/Creatinine Ratio 26.3 (10.0-20.0); Blood Urea Nitrogen 15 mg/dL (9-23); Calcium 8.2 mg/dL (8.7-10.4); Carbon Dioxide 25 mmol/L (20-31); Chloride 108 mmol/L (98-107); Glucose 99 mg/dL (74-106); Potassium 3.8 mmol/L (3.5-5.1); Sodium 143 mmol/L (136-145); Total Protein 5.7 g/dL (5.7-8.2)
[2024-12-21 06:03] LABS: Bilirubin, Total 4.3 mg/dL (0.2-1.0)
[2024-12-21] MEDS: FUROSEMIDE 20 MG TAB PO SCH (09:46)
[2024-12-21] MEDS ORDERED: CYCL-611 PO (16:18)
[2024-12-21] MEDS: PANTOPRAZOLE 40 MG/10 ML VIAL INJ IV ONE (16:29)
[2024-12-21] MEDS: methylPREDNISolone SOD SUCC 40 MG/ML VL IV ONE (16:34)
[2024-12-21 17:00] VITALS: BP 163/80; PULSE 69; RESP 18; TEMP 98.5; O2SAT 96
--- NOTE | 2024-12-21 18:05 | DVHPN2 ---
Reviewed: H&P Changes from previous H/P or p: No Changes General: Per HPI Eyes: No Pain, No Vision change, No Conjunctivae inflammation, No Eyelid inflammation, No Other, No Redness ENT: No Ear pain, No Ear discharge, No Nose pain, No Nose discharge, No Nose congestion, No Mouth pain, No Mouth swelling, No Throat pain, No Throat swelling, No Other Cardiovascular: No Chest Pain, No Palpitations, No Orthopnea, No Paroxysmal Noc. Dyspnea, No Edema, No Lt Headedness, No Other Respiratory: No Cough, No Dry, No Shortness of breath, No SOB with excertion, No Wheezing, No Hemoptysis, No Pleuritic Pain, No Sputum, No Other Gastrointestinal: Abdominal Pain Genitourinary: No Dysuria, No Frequency, No Incontinence, No Hematuria, No Retention, No Other Musculoskeletal: No other, No neck pain, No shoulder pain, No arm pain, No back pain, No hand pain, No leg pain, No foot pain Skin: No Rash, No Lesions, No Jaundice, No Bruising, No Other Objective Vitals Vital Signs Date Time Temp Pulse Resp B/P (MAP) Pulse Ox O2 Delivery O2 Flow Rate FiO2 12/21/24 17:00 98.5 69 18 163/80 (107) 96 98.5 12/20/24 20:12 Room Air* 0 21 Intake/Output Intake and Output 12/21/24 07:00 Intake Total 240 ml Balance 240 ml Intake Oral 240 ml # Voids 5 # Bowel Movements 1 Exam General Appearance: Cooperative. Well developed. Well nourished. NAD Head Exam: Normal inspection Neck Exam: Normal inspection. Non-tender. Normal alignment Pulmonary/Respiratory: Chest non-tender. Clear bilateral breath sounds Cardiovascular/Chest: Regular rate and rhythm. No murmurs. No JVD. Peripheral Pulses: 2+ Radial (R). 2+ Radial (L). 2+ Pedal (R). 2+ Pedal (L) Abdominal Exam: Normal bowel sounds. Soft. Tenderness over left costophrenic angle on deep palpation. Hepatomegaly. No masses Ankle Exam: Negative ankle edema Lower extremities: Negative lower extremity edema Neuro/Mental Status: A&O x4. Coherent Thoughts/Psych: Normal thought pattern. Appropriate mood and affect. Good judgement and insight Appearance: In no acute distress Skin Exam: Normal inspection. Normal color. Warm. Dry Medications Current Medications Medications Dose Ordered Sig/Dylan Route Start Time Stop Time Status Last Admin Dose Admin Hydromorphone HCl 0.5 mg Q4HP PRN IV 12/20/24 12:30 12/20/24 20:12 0.5 MG Levothyroxine Sodium 100 mcg QAM@0600 PO 12/21/24 06:00 12/21/24 05:56 100 MCG Acetaminophen/ Hydrocodone Bitart 1 tab Q6HPRN PRN PO 12/20/24 12:00 Pantoprazole Sodium 40 mg DAILY@0700 PO 12/21/24 07:00 12/21/24 05:56 40 MG Furosemide 20 mg DAILY PO 12/21/24 10:00 Laboratory Results Laboratory Tests 12/21/24 05:01 Chemistry Test 12/21/24 05:01 Albumin 2.9 g/dL (3.2-4.8) L Calcium Level 8.2 mg/dL (8.7-10.4) L Total Protein 5.7 g/dL (5.7-8.2) Lipid panel Test 12/21/24 05:01 Lipase 58 U/L (12-53) H LFT Test 12/21/24 05:01 Alanine Aminotransferase (ALT) 46 U/L (7-40) H Alkaline Phosphatase 103 U/L (46-116) Aspartate Amino Transferase (AST) 54 U/L (13-40) H Total Bilirubin 4.3 mg/dL (0.2-1.0) H Urinalysis Test 12/20/24 05:33 Urine Color Yellow (Yellow) Urine Clarity Clear (Clear) Urine pH 6.0 (5.0-9.0) Urine Specific [place] 1.025 (1.001-1.035) Urine Protein Negative (Negative) Urine Ketones Negative (Negative) Urine Blood Trace /uL (Negative) H Urine Nitrite Negative (Negative) Urine Bilirubin Negative (Negative) Urine Urobilinogen 3 mg/dL (Negative) H Urine Leukocyte Esterase Negative /uL (Negative) Urine RBC 2 /hpf (0 - 4) Urine Microscopic WBC 1 /HPF (0-5) Urine Squamous Epithelial Cells Few /hpf (<5) Urine Bacteria None seen /hpf (None Seen) Urine Mucus Few (None Seen) Urine Glucose Normal mg/dL (Normal) Labs and/or images reviewed: Labs reviewed by me, Image(s) reviewed by me Assessment/Plan Assessment/Plan 69-year-old female who came to the hospital with a chief complaint of left-sided flank pain. Left flank pain onset two days ago, nonradiating, worsened with movement, had similar kind of symptoms few months ago when she was diagnosed with diverticulosis and diverticulitis, however this time she has pain more over bedside compared to anterior part of abdomen. Patient's last bowel movement was yesterday, she does have back pain, but according to patient her pain is different from her breakthrough over lumbar spine pain. Patient denying any other symptoms including nausea, vomiting, epigastric pain, chest pain, shortness of breath, any other symptoms. 12/21 - R flank pain. no cva ttp. hx RIVERA?, patient is obese, so likely/possible, plus pt endorses she has FHX of it too, so familial rivera possible. TBili high but less from prior visits. flank is paraspinal, ttp. likely MSK origin. unable to rule out splenic vein thrombosis at this time. patient also asking for AMA form, she is informed of all risks. we will trial solumedrol 20 iv x1, protonix 40 iv daily, and flexiril 10mg hs. Left flank pain Liver cirrhosis Diverticulosis -Lasix 20 mg p.o. daily -GI consultation -patient will need colonoscopy given recent diverticulitis. -pain management: [place] one tablet p.o. q.6 as needed, for severe pain hydromorphone. -pantoprazole 40 mg p.o. daily -CT scan of abdomen:No acute intraabdominal abnormality. No kidney stones. Hyperbilirubinemia secondary to cirrhosis -continue to monitor liver function Microcytic pancytopenia likely due to cirrhosis -WBC 2.6, MCV 100.9, platelets 90 -continue to monitor -no active bleeding -nutritional supplement with B12, folic acid -follow up with pending B12, folic acid. Secondary coagulopathy -PT 13.2, INR 1.28 on 10/01/2024 -no active bleeding Mild elevated lipase -lipase 54 on 12/20/2024 -avoid hepatotoxic agents Protein calorie malnutrition -encourage protein intake, at least 1 milligram/kg. Hypothyroidism -continue levothyroxine 100 mcg p.o. daily -TSH 3.47 PUD prophylaxis with Protonix DVT prophylaxis SCD if needed, patient is ambulatory. [facility] full code Plan discussed with: Patient Date of Service: Dec 21, 2024 Billing Provider: LIZZETH JAY MD Common Visit Codes: [id number] INP/OBS CARE(HIGH) LIZZETH JAY MD Dec 21, 2024 18:05
[2024-12-21 21:00] VITALS: BP 143/81; PULSE 70; RESP 17; TEMP 98.4; O2SAT 96
[2024-12-22 01:00] VITALS: BP 126/68; PULSE 63; RESP 17; TEMP 98.3; O2SAT 95
[2024-12-22 05:00] VITALS: BP 131/74; PULSE 53; RESP 18; TEMP 97.7; O2SAT 95
[2024-12-22 08:19] VITALS: BP 140/70; PULSE 61; RESP 18; TEMP 98; O2SAT 96
[2024-12-22] MEDS ORDERED: CYCLOBENZAPRINE HCL 10 MG TAB PO ONE (12:15)
[2024-12-22 12:17] VITALS: BP 140/69; PULSE 64; RESP 18; TEMP 97; O2SAT 95
[2024-12-22] MEDS ORDERED: BACL10TA PO (12:17)
[2024-12-22] MEDS ORDERED: OXY5T PO (12:17)
--- NOTE | 2024-12-22 12:21 | DVHDS2 ---
Discharge Summary Date of Admission Dec 20, 2024 at 11:50 Date of Discharge: Dec 22, 2024 Labs/Diagnostic Data: Laboratory Results Test 12/21/24 05:01 12/20/24 13:06 12/20/24 06:48 12/20/24 05:33 White Blood Count 2.3 10^3/uL (4.4-10.8) Red Blood Count 4.01 10^6/uL (4.0-5.20) Hemoglobin 14.3 g/dL (12.2-16.2) Hematocrit 41.0 % (36.0-46.0) Mean Corpuscular Volume 102.4 fL (80.0-100.0) Mean Corpuscular Hemoglobin 35.7 pg (28.0-32.0) Mean Corpuscular Hemoglobin Concent 34.8 g/dL (32.0-36.0) Red Cell Distribution Width 14.7 % (11.8-14.3) Platelet Count 91 10^3/uL (140-450) Mean Platelet Volume 9.6 fL (6.9-10.8) Neutrophils (%) (Auto) 44.3 % (37.0-80.0) Lymphocytes (%) (Auto) 37.2 % (10.0-50.0) Monocytes (%) (Auto) 12.0 % (0.0-12.0) Eosinophils (%) (Auto) 5.4 % (0.0-7.0) Basophils (%) (Auto) 1.1 % (0.0-2.0) Neutrophils # (Auto) 1.0 10 ^3/uL (1.6-8.6) Lymphocytes # (Auto) 0.9 10 ^3/uL (0.4-5.4) Monocytes # (Auto) 0.3 10 ^3/uL (0-1.3) Eosinophils # (Auto) 0.1 10 ^3/uL (0-0.8) Basophils # (Auto) 0 10 ^3/uL (0-0.2) Nucleated Red Blood Cells 0.3 % Sodium Level 143 mmol/L (136-145) Potassium Level 3.8 mmol/L (3.5-5.1) Chloride Level 108 mmol/L (98-107) Carbon Dioxide Level 25 mmol/L (20-31) Anion Gap 10 (5-15) Blood Urea Nitrogen 15 mg/dL (9-23) Creatinine 0.57 mg/dL (0.550-1.02) Glomerular Filtration Rate Calc 99 mL/min (>90) BUN/Creatinine Ratio 26.3 (10.0-20.0) Serum Glucose 99 mg/dL (74-106) Calcium Level 8.2 mg/dL (8.7-10.4) Total Bilirubin 4.3 mg/dL (0.2-1.0) Aspartate Amino Transferase (AST) 54 U/L (13-40) Alanine Aminotransferase (ALT) 46 U/L (7-40) Alkaline Phosphatase 103 U/L (46-116) Total Protein 5.7 g/dL (5.7-8.2) Albumin 2.9 g/dL (3.2-4.8) Lipase 58 U/L (12-53) Troponin I High Sensitivity 19 ng/L (</=34) Vitamin B12 Level 1331 pg/mL (211-911) Folic Acid 8.93 ng/mL (>5.38) Urine Color Yellow (Yellow) Urine Clarity Clear (Clear) Urine pH 6.0 (5.0-9.0) Urine Specific [place] 1.025 (1.001-1.035) Urine Protein Negative (Negative) Urine Ketones Negative (Negative) Urine Blood Trace /uL (Negative) Urine Nitrite Negative (Negative) Urine Bilirubin Negative (Negative) Urine Urobilinogen 3 mg/dL (Negative) Urine Leukocyte Esterase Negative /uL (Negative) Urine RBC 2 /hpf (0 - 4) Urine Microscopic WBC 1 /HPF (0-5) Urine Squamous Epithelial Cells Few /hpf (<5) Urine Bacteria None seen /hpf (None Seen) Urine Mucus Few (None Seen) Urine Glucose Normal mg/dL (Normal) Test 12/20/24 05:08 Thyroid Stimulating Hormone (TSH) 3.47 uIU/mL (0.55-4.78) Other Laboratory Tests 12/21/24 05:01 Brief Hx & Hospital Course: 69-year-old female who came to the hospital with a chief complaint of left-sided flank pain. Left flank pain onset two days ago, nonradiating, worsened with movement, had similar kind of symptoms few months ago when she was diagnosed with diverticulosis and diverticulitis, however this time she has pain more over bedside compared to anterior part of abdomen. Patient's last bowel movement was yesterday, she does have back pain, but according to patient her pain is different from her breakthrough over lumbar spine pain. Patient denying any other symptoms including nausea, vomiting, epigastric pain, chest pain, shortness of breath, any other symptoms. 12/21 - R flank pain. no cva ttp. hx RIVERA?, patient is obese, so likely/possible, plus pt endorses she has FHX of it too, so familial rivera possible. TBili high but less from prior visits. flank is paraspinal, ttp. likely MSK origin. unable to rule out splenic vein thrombosis at this time. patient also asking for AMA form, she is informed of all risks. we will trial solumedrol 20 iv x1, protonix 40 iv daily, and flexiril 10mg hs. 12/22-patient did not leave AMA, some pain around ribs, costochondritis possible. Vital signs stable likely musculoskeletal or costochondritis. Stable for discharge as per plan below. Diagnosis: Left flank pain, likely MSK pain, unable to rule out costochondritis Ruled out nephrolithiasis Ruled out pyelonephritis Liver cirrhosis Diverticulosis Hyperbilirubinemia secondary to cirrhosis Microcytic pancytopenia likely due to cirrhosis Secondary coagulopathy Morbid obesity BMI 49.9 Mild elevated lipase Hypothyroidism Plan: -Take baclofen 10 mg twice daily for 7 days, use extra tablets has a prn up to 3 times daily -For pain use ibuprofen 1st line, second-line use oxycodone 5 mg up to 3 times daily as needed -Continue other home medications not mentioned above -encouraged morning exercises and stretches -Avoid Tylenol -Follow up with PCP to review discharge. PCP to workup further causes if pain continues. PCP to consider PT referral if pain continues. Condition at Discharge: Fair Final Diagnosis/Problems List Left flank pain, likely MSK pain, unable to rule out costochondritis Ruled out nephrolithiasis Ruled out pyelonephritis Liver cirrhosis Diverticulosis Hyperbilirubinemia secondary to cirrhosis Microcytic pancytopenia likely due to cirrhosis Secondary coagulopathy Morbid obesity BMI 49.9 Mild elevated lipase Hypothyroidism Discharge Disposition: Home Discharge Instruct/Medications Scheduled Levothyroxine Sodium (Synthroid Tablet), 1 TAB PO DAILY Scheduled PRN Baclofen (Baclofen), 10 MG PO TIDP PRN Oxycodone Hcl (Oxycodone Hcl), 5 MG PO TIDP PRN Discharge Statement: "Patient was advised to return to the ER or call 911 if any headaches, dizziness, shortness of breath, chest pain, abdominal pain, bleeding, fevers, or worsening of medical condition. Patient was counseled about treatment plan, medications, possible side effects, patientverbalized understanding. All questions were answered to the best of my ability. This discharge took greater then 30 minutes in planning, reviewing documentation, counseling the patient, and discussing with other team members." ASSESSMENT ASSESSMENT Assessment Date of Service: Dec 22, 2024 Billing Provider: LIZZETH JAY MD Common Visit Codes: [id number] DISCH DAY >30min LIZZETH JAY MD Dec 22, 2024 12:21
[2024-12-22 13:48] VITALS: BP 140/69; PULSE 64; RESP 18; TEMP 97; O2SAT 95
[2024-12-22] MEDS: BACLOFEN 10 MG TAB PO ONE (14:03)
[2024-12-22] MEDS: methylPREDNISolone SOD SUCC 40 MG/ML VL IV ONE (14:03)
== END 2024-12-22 14:16 | disposition home or self-care (01) | DRG 206 ==
LOC: ER 05:26 → OVERFLOW 11:50 → EAST 12-21 13:28
PROVIDERS: ADMIT Student in an Organized Health Care Education/Training Program; ATTEND Student in an Organized Health Care Education/Training Program
DX: M94.0 Chondrocostal junction syndrome [Tietze] (principal); D61.818 Other pancytopenia; E46 Unspecified protein-calorie malnutrition; D68.9 Coagulation defect, unspecified; Z68.42 Body mass index [BMI] 45.0-49.9, adult; M79.18 Myalgia, other site; K74.60 Unspecified cirrhosis of liver; K57.30 Diverticulosis of large intestine without perforation or abscess without bleeding; E03.9 Hypothyroidism, unspecified; E80.6 Other disorders of bilirubin metabolism; E66.01 Morbid (severe) obesity due to excess calories; G89.29 Other chronic pain; R74.8 Abnormal levels of other serum enzymes; Z91.041 Radiographic dye allergy status; Z90.710 Acquired absence of both cervix and uterus; Z90.49 Acquired absence of other specified parts of digestive tract; Z87.891 Personal history of nicotine dependence; Z79.899 Other long term (current) drug therapy
CPT/HCPCS: 36415; 74176; 80048; 80053; 81001; 82607; 82746; 83690; 84443; 84484; 85025; 96374; G0378; J1885; J2470